=== PATIENT | male | born 1945 | race Caucasian/White ===

== ENCOUNTER 2020-09-20 09:40 | Inpatient (IN) | payer MEDICARE, OTHER, SELFPAY ==
[2020-09-20] VITALS (17 sets, daily range): BP systolic 132–176; BP diastolic 48–84; PULSE 52–87; RESP 16–32; TEMP 36.4–37.1; O2SAT 76–93; BMI 25.8; BMI 33.0; BMI 23.9
--- NOTE | 2020-09-20 09:50 | PC.NURSE ---
PATIENT SENT TO ER PER QUENTIN PACK APRN FOR FURTHER EVALUATION. REPORT GIVEN TO Raheem LITTLEJOHN RN
--- NOTE | 2020-09-20 10:14 | XR_ITS ---
PROCEDURE: XR CHEST PORTABLE CLINICAL HISTORY: soa hypoxia COMPARISON: No exams were available for comparison FINDINGS: The cardiomediastinal silhouette and pulmonary vascularity are within normal limits. Patchy density is present in both lower lobes consistent bilateral lower lobe pneumonia. There is underlying COPD. There is some irregular increased density in the left suprahilar region which could be due to overlapping vessels. Follow-up suggested. No acute bony abnormalities. IMPRESSION: Bilateral lower lobe pneumonia Dictated by: Shahram Aguilar MD 09/20/2020 10:41 Shahram Aguilar MD in [place] 09/20/2020 10:41
[2020-09-20 10:39] LABS: Chloride 102 mmol/L (98-107); Sodium 140 mmol/L (136-145)
[2020-09-20 10:40] LABS: Potassium 3.1 mmoL/L (3.5-5.1)
[2020-09-20 10:42] LABS: Blood Urea Nitrogen 29 mg/dl (9-20); Creatinine Clearance Estimated 72 mL/min (50-200); Estimated Glomerular Filt Rate 82 ml/min (>60); GFR (African American) 100 ML/MIN (>60)
[2020-09-20 10:43] LABS: Alanine Aminotransferase 46 U/L (12-78); Anion Gap 14.1 mEq/L (5-15); Aspartate Amino Transferase 67 U/L (17-59); Bilirubin,Direct 0.3 mg/dl (0.0-0.4); Bilirubin,Indirect 0.8 mg/dL (0.0-0.9); Bilirubin,Total 1.1 mg/dl (0.2-1.3); Bilirubin,Unconjugated 0.8 mg/dL (0.0-1.1); Calcium 9.3 mg/dl (8.4-10.2); Carbon Dioxide 27 mmol/L (22.0-30.0); Glucose 209 mg/dl (74-100)
[2020-09-20 10:44] LABS: Alkaline Phosphatase 147 U/L (38-126); Total Protein,Serum 7.8 g/dl (6.3-8.2)
--- NOTE | 2020-09-20 10:48 | HMH.EDGENADL ---
ED Disposition Clinical Impression: Pneumonia due to COVID-19 virus Disposition: Admitted As Inpatient Condition on Discharge: Good - Critical Care Critical Care Time: No Attestation: On 09/20/20, the high probability of a clinically significant, sudden or life threatening deterioration of the following system(s) required my full and direct attention, intervention and personal management. The time I documented below is in addition to time spent performing reported procedures but includes the following listed in this critical care notation. Medical Decision Making - Medical Records Medical records reviewed: Yes: I reviewed the patient's medical records. - Jacob Inquiry Pt receiving controlled substance: No Vital Signs: 09/20/20 09:40 09/20/20 09:42 09/20/20 10:14 Temperature 98.7 F Temperature Source Oral Pulse Rate Pulse Rate [Left Brachial] 87 Respiratory Rate 32 H Blood Pressure Blood Pressure [Left Arm] 132/48 L Blood Pressure Mean [Left Arm] 76 Blood Pressure Source Blood Pressure Source [Left Arm] Automatic Cuff Blood Pressure Position Blood Pressure Position [Left Arm] Sitting 02 Sat by Pulse Oximetry 78 L 85 L Oxygen Delivery Method Room Air Nasal Cannula Oxygen Flow Rate (LPM) 2.5 6 09/20/20 10:25 09/20/20 11:14 09/20/20 12:46 Temperature 98.2 F 97.6 F Temperature Source Oral Oral Pulse Rate Pulse Rate [Left Brachial] 72 69 52 L Respiratory Rate 21 22 30 H Blood Pressure Blood Pressure [Left Arm] 135/84 175/80 H Blood Pressure Mean [Left Arm] 101 111 Blood Pressure Source Blood Pressure Source [Left Arm] Automatic Cuff Automatic Cuff Blood Pressure Position Blood Pressure Position [Left Arm] Sitting 02 Sat by Pulse Oximetry 76 L 89 L 88 L Oxygen Delivery Method Room Air Nasal Cannula Oxygen Flow Rate (LPM) 5 09/20/20 12:50 09/20/20 13:01 09/20/20 13:11 Temperature 98.0 F Temperature Source Pulse Rate 70 Pulse Rate [Left Brachial] 78 77 Respiratory Rate 18 20 20 Blood Pressure 156/83 H Blood Pressure [Left Arm] 176/72 H 156/83 H Blood Pressure Mean [Left Arm] 106 107 Blood Pressure Source Automatic Cuff Blood Pressure Source [Left Arm] Automatic Cuff Automatic Cuff Blood Pressure Position Sitting Blood Pressure Position [Left Arm] Sitting Sitting 02 Sat by Pulse Oximetry 88 L 87 L Oxygen Delivery Method Nasal Cannula Nasal Cannula Nasal Cannula Oxygen Flow Rate (LPM) 5 5 5 - Lab Data Lab Results 09/20/20 09:50: Chlamy pneumoniae PCR Not detected, Adenovirus (PCR) Not detected, B. pertussis DNA (PCR) Not detected, Coronavirus OC43 (PCR) Not detected, Coronavirus HKU1 (PCR) Not detected, Coronavirus 229E (PCR) Not detected, SARS-CoV-2 (PCR) Detected A, Coronavirus NL63 (PCR) Not detected, Human Metapneumovir PCR Not detected, Influenza A (H1) PCR Not detected, Influ A (H1N1/) PCR Not detected, Influenza A (H3) PCR Not detected, Influenza Type A (PCR) Not detected, Influenza Type B (PCR) Not detected, M. pneumoniae (PCR) Not detected, Parainfluenza 1 (PCR) Not detected, Parainfluenza 2 (PCR) Not detected, Parainfluenza 3 (PCR) Not detected, Parainfluenza 4 (PCR) Not detected, RSV (PCR) Not detected, Entero/Rhino (PCR) Not detected 09/20/20 10:15: WBC 7.9, RBC 5.36, Hgb 16.4, Hct 47.8, MCV 89.2, MCH 30.6, MCHC 34.3, RDW 13.3, Plt Count 235, MPV 7.9, Neut % (Auto) 86.6 H, Lymph % (Auto) 7.5 L, [place] % (Auto) 5.5, Eos % (Auto) 0.1, Baso % (Auto) 0.3, Neut # (Auto) 6.8, Lymph # (Auto) 0.6 L, [place] # (Auto) 0.4, Eos # (Auto) 0.0, Baso # (Auto) 0.0, Total Counted 100, Neutrophils % (Manual) 80 H, Lymphocytes % (Manual) 9 L, Monocytes % (Manual) 11 H, Platelet Estimate Normal, RBC Morphology Normal 09/20/20 10:15: Sodium 140, Potassium 3.1 L, Chloride 102, Carbon Dioxide 27, Anion Gap 14.1, BUN 29 H, Creatinine 0.90, Estimated Creat Clear 72, Estimated GFR 82, Est GFR ( Amer) 100, Glucose 209 H, Calcium 9.3, Troponin I 0.01
[2020-09-20 10:52] LABS: NT Pro Brain Natriuretic Pep. 465 pg/mL (0-450)
--- NOTE | 2020-09-20 10:53 | ECG_ITS ---
APPROVED REPORT Exam: Resting ECG HR:70 bpm ECG Measurements Heart Rate 70 AXES OR 154 P 82 QRSd 92 QRS 92 QT 418 T 35 QTc 451 Conclusion Normal sinus rhythm Rightward axis Junctional ST depression, probably normal Borderline ECG Electronically signed by : Yovani Isbell, 09/20/2020 19:08:30
[2020-09-20 10:57] LABS: Adenovirus,PCR Not Detected (NotDetected); Bordetella Pertussis Not Detected (NotDetected); Chlamydophila Pneumoniae, PCR Not Detected (NotDetected); Coronavirus 229E Not Detected (NotDetected); Coronavirus NL63 Not Detected (NotDetected); Coronavirus OC43 Not Detected (NotDetected); Coronovirus HKU1,PCR Not Detected (NotDetected); Human Metapneumovirus Not Detected (NotDetected); Influenza A, PCR Not Detected (NotDetected); Influenza AH1, 2009 Not Detected (NotDetected); Influenza AH1, PCR Not Detected (NotDetected); Influenza AH3,PCR Not Detected (NotDetected); Influenza B, PCR Not Detected (NotDetected); Mycoplasma Pneumoniae, PCR Not Detected (NotDetected); Parainfluenza 1, PCR Not Detected (NotDetected); Parainfluenza 2, PCR Not Detected (NotDetected); Parainfluenza 3, PCR Not Detected (NotDetected); Parainfluenza 4, PCR Not Detected (NotDetected); Respiratory Syncytial Virus Not Detected (NotDetected); Rhinovirus/Enterovirus Not Detected (NotDetected)
[2020-09-20 10:57] LABS: Basophils % 0.3 % (0.1-2.0); Eosinophils % 0.1 % (0.1-12.0); Hematocrit 47.8 % (42.0-52.0); Hemoglobin 16.4 g/dL (14.1-18.0); Lymphocytes # 0.6 K/mm3 (0.7-4.5); Lymphocytes % 7.5 % (10-50); Mean Corpuscular HGB Conc 34.3 g/dL (31.8-35.4); Mean Corpuscular Hemoglobin 30.6 pg (27.0-31.2); Mean Corpuscular Volume 89.2 fl (80-94); Mean Platelet Volume 7.9 fl (7.4-10.4); Monocytes # 0.4 K/mm3 (0.1-1.0); Monocytes % 5.5 % (1.7-9.3); Neutrophils # 6.8 K/mm3 (1.8-7.8); Neutrophils % 86.6 % (37.0-80.0); Platelet Count 235 K/mm3 (142-424); Red Blood Count 5.36 M/mm3 (4.60-6.20); Red Cell Distribution Width 13.3 % (11.5-17.5); Troponin I 0.01 ng/ml (0.00-0.034); White Blood Count 7.9 K/mm3 (4.8-10.8)
[2020-09-20 10:59] LABS: MANUAL DIFFERENTIAL MANUAL DIFFERENTIAL (MANUAL DIFF)
[2020-09-20 11:10] LABS: Coronavirus 19 IgG Antibody Positive (Negative); Coronavirus 19 IgM Antibody Positive (Negative)
[2020-09-20 11:35] LABS: Lymphocytes % 9 % (10-50); Monocytes % 11 % (2-9); Neutrophils % 80 % (42-76); Total Cells Counted 100
[2020-09-20 11:36] LABS: Platelet Estimate Normal; RBC Morphology Normal
--- NOTE | 2020-09-20 11:55 | PC.NURSE ---
speaking with Dr. Hein
--- NOTE | 2020-09-20 11:56 | PC.NURSE ---
Notified care management of COVID admission
[2020-09-20 12:27] LABS: Coronavirus 19, PCR Detected (NotDetected)
--- NOTE | 2020-09-20 14:34 | HMH.HP ---
*Admission Date: 09/20/20 <Ann Sullivan - 09/20/20 15:37> *Chief complaint: Shortness of breath <Ann Sullivan - 09/20/20 15:37> *History of present illness: - Mr. Gillette is a 74-year-old male patient with a history of hyperlipidemia, hypertension, and hypothyroidism who presented to [facility] emergency room with progressive shortness of breath and cough. He states he has been sick for about 6 or 7 days and thought he could manage to get well on his own. It started after playing golf with his friends who are now all sick with Covid. There are about 10 of them that have fallen ill. He has been more short of breath the last 2 to 3 days. His O2 sats did decrease and he felt so badly his son insisted that he come to the emergency room. He denies chest pain. He states he also developed a diarrhea about 2 to 3 days ago and has not been able to eat or drink. He denies nausea and vomiting and abdominal pain but states he has just no appetite. He reports generalized fatigue. He was initially seen in the [facility] and was found to have O2 sats in the 70s. He appears cyanotic. Thus he was transferred to the ER where he was evaluated. Work-up in the emergency room revealed normal white blood cell count at 7900. Blood chemistries showed a low potassium at 3.1. BUN was a little elevated at 29 with a creatinine of 0.9. GFR is 82. Liver function studies showed an elevated AST at 67 and alkaline phosphatase of 147. BNP was 465. Covid PCR was detected with a positive IgG and positive IgM.. Chest x-ray revealed bilateral lower lobe pneumonia. O2 sats did improve to 88 with oxygen. At time of this exam patient states he feels 100% better. His O2 sats still are in the high 80s and oxygen has been increased to 6 L/min. He has not received a DuoNeb treatment as yet. To note patient has never been hospitalized. He has been very active and and is followed by his PCP for his high blood pressure and Hyperlipidemia. <Ann Sullivan - 09/20/20 15:37> [facility] History Medical History: Reports:: Hyperlipidemia, Hypertension Denies:: Chronic Obstructive Pulmonary Disease (COPD), Depression, Diabetes Mellitus Type 2 <Ann Sullivan - 09/20/20 15:37> *Have you ever received a pneumonia vaccine?: No <[facility] 09/20/20 15:10> *Have you received a flu vaccine this season?: No <LaurieAnn - 09/20/20 15:10> Other Surgeries: Yes: No Previous Surgery <SullivanAnn - 09/20/20 15:37> - *Social History Alcohol Intake: never <SullivanAnn 09/20/20 15:10> *Occupational Status:: other [facility] 09/20/20 15:10> *Travel in the last 8 weeks: None <SullivanAnn - 09/20/20 15:10> Family Hx:: Coronary Artery Disease, no Diabetes <SullivanAnn - 09/20/20 15:37> Review of Systems - Constitutional Reports fever(s), Reports lack of energy <SullivanAnn - 09/20/20 15:37> - Eyes Denies change in vision <Sullivan,[facility] 09/20/20 15:37> - ENT Reports nasal congestion, Reports post nasal drip, Denies ear pain, Denies sore throat <[facility] 09/20/20 15:37> - *Cardiovascular Reports shortness of breath, Denies chest pain, Denies irregular heart rhythm, Denies leg swelling <[facility] 09/20/20 15:37> - *Respiratory Reports cough, Reports shortness of breath, Denies excessive phlegm production, Denies coughing up blood <Sullivan,[facility] 09/20/20 15:37> - *Gastrointestinal Reports loose stools, Reports nausea, Denies abdominal pain, Denies constipation, Denies heartburn, Denies heartburn, Denies vomiting <Sullivan,Ann - 09/20/20 15:37> - *Genitourinary Denies difficulty urinating <Sullivan,[facility] 09/20/20 15:37> - *Musculoskeletal Reports other (Usually no problem but is weak now) <Sullivan,[facility] 09/20/20 15:37> - *Neurologic Denies seizure-like activity, Denies dizziness, Denies headache(s) <[facility] 09/20/20 15:37> Meds Home Medications Medication Instructions Recorded Confirmed Typ
--- NOTE | 2020-09-20 16:56 | PC.NURSE ---
1518 - Notified MD of decreased O2 sat 87-88% after duoneb treatment and use of IS. Pt denies SOA and states that he feels fine. Orders for pt to be placed on vapotherm starting @ 30L FIO2 and to titrate to maintain O2 sat > 90%. PLAYBACK OPERATOR notified of this. 153 - Pt on vapotherm per Bennie ArndtRT. Settings of 25 L @ 100% d/t pt stating he was not able to tolerate the flow of the 30 L. Pt SPO2 90%. Cont pulse ox is in place for monitoring. Pt is currently sitting up in bed eating dinner, sat will occasional to 89% but will almost instantly increase back to 90%. Pt tolerating vapotherm well. Lungs diminished throughout all air mendoza. Education on IS has been given by this nurse. Pt demonstrated use appropriately by may still need encouragement and reminding to use while awake. Is @ best 1000 cc. Pt has a non-productive cough. Speci cup is at bedside and pt is aware of need for sputum sample. Resp rate has been 22-30/min. NSR on tely, occasionally will go in and out of bigeminy. SBP has been elevated, MD made aware of this. Abdomen soft, non-tender w/ active BS. Pt has had diarrhea for the past couple of days, but has had no BM since arriving to hospital. Voiding clear drk yellow urine w/o difficulty. Skin is intact. No edema noted. Lovenox has been started for VTE prophylaxis. Pt has been in contact w/ his family to update them throughout shift. Pt educated on hospital policies, call hernandez is w/in reach. No needs voiced @ this time.
--- NOTE | 2020-09-20 21:40 | PC.NURSE ---
Pt O2 started to desat between 86-89%. RT notified. Vapotherm settings changed from 25 L 100% to 30L 100%.
[2020-09-21] VITALS (14 sets, daily range): BP systolic 133–156; BP diastolic 65–72; PULSE 60–80; RESP 17–22; TEMP 36.2–36.7; O2SAT 89–94; BMI 23.7
--- NOTE | 2020-09-21 03:36 | PC.NURSE ---
Pt A&O x4. Is currently on Vapotherm 30L @ 100%. O2 sat is currently 91%. Lungs are diminished t/o. Has non productive cough. Pt becomes soa and fatigued with activity. O2 desats in upper 80s. Recovery period is around 5 to 10 minutes at times. Pt has remained afebrile. BP is stable. Pt has been sinus, sinus arrhythmia and bigeminy on telemetry. Pt uses urinal. Total urine output this shift is 600 ml thus far. Medications administered per dec. Call light within reach. Will continue to monitor.
[2020-09-21 05:46] LABS: Basophils % 0.4 % (0.1-2.0); Hematocrit 38.7 % (42.0-52.0); Lymphocytes # 0.9 K/mm3 (0.7-4.5); Lymphocytes % 12.8 % (10-50); Mean Corpuscular HGB Conc 36.2 g/dL (31.8-35.4); Mean Corpuscular Hemoglobin 31.1 pg (27.0-31.2); Mean Corpuscular Volume 85.9 fl (80-94); Mean Platelet Volume 8.6 fl (7.4-10.4); Monocytes # 0.6 K/mm3 (0.1-1.0); Monocytes % 8.6 % (1.7-9.3); Neutrophils # 5.2 K/mm3 (1.8-7.8); Neutrophils % 78.1 % (37.0-80.0); Platelet Count 256 K/mm3 (142-424); Red Cell Distribution Width 13.6 % (11.5-17.5); White Blood Count 6.6 K/mm3 (4.8-10.8)
[2020-09-21 05:50] LABS: Chloride 107 mmol/L (98-107); Sodium 139 mmol/L (136-145)
[2020-09-21 05:51] LABS: Potassium 3.5 mmoL/L (3.5-5.1)
[2020-09-21 05:53] LABS: Alanine Aminotransferase 41 U/L (12-78); Albumin Level 3.2 g/dl (3.5-5.0); Alkaline Phosphatase 117 U/L (38-126); Anion Gap 11.5 mEq/L (5-15); Aspartate Amino Transferase 48 U/L (17-59); Bilirubin,Total 0.5 mg/dl (0.2-1.3); Blood Urea Nitrogen 20 mg/dl (9-20); Carbon Dioxide 24 mmol/L (22.0-30.0); Creatinine Clearance Estimated 66 mL/min (50-200); Estimated Glomerular Filt Rate 110 ml/min (>60); GFR (African American) 133 ML/MIN (>60); Globulin 3.2 g/dL (1.3-3.2); Total Protein,Serum 6.4 g/dl (6.3-8.2)
[2020-09-21 05:54] LABS: Calcium 8.5 mg/dl (8.4-10.2); Glucose 161 mg/dl (74-100)
[2020-09-21 06:04] LABS: Hemoglobin 14.1 g/dL (14.1-18.0)
--- NOTE | 2020-09-21 07:57 | P.CONPHA_ITS ---
[facility] Pharmacy VTE Monitoring - Patient Demographics Admission date: 09/20/20 Report Date: 09/21/20 Time: 07:57 Allergies/Adverse Reactions: Patient Allergies No Known Allergies Allergy (Verified 09/20/20 10:35) Height: 1.75 m Weight: 72.575 kg Patient Problems: Current Active Problems Pneumonia due to COVID-19 virus (Acute) Acute hypoxemic respiratory failure due to COVID-19 (Acute) Hypertension (Chronic) Elevated liver function tests (Acute) Hypokalemia (Acute) - VTE Risk Labs: VTE Related Lab Results Hgb 14.1 g/dL (14.1-18.0) D 09/21/20 05:15 Hct 38.7 % (42.0-52.0) L 09/21/20 05:15 Plt Count 256 K/mm3 (142-424) 09/21/20 05:15 BUN 20 mg/dl (9-20) D 09/21/20 05:15 Creatinine 0.70 mg/dl (0.66-1.25) D 09/21/20 05:15 Estimated Creat Clear 66 mL/min (50-200) 09/21/20 05:15 Was VTE Risk Assessment Performed: Yes VTE Score: 2 VTE Risk Level: Very Low Risk Clinical Trial Participant: No - Prophylaxis VTE Prophylaxis Ordered?: Yes Types of VTE Prophylaxis: TEDS Knee High Location of Applied Device: Bilateral Lower Extremeties Pharmacologic Type: Enoxaparin
--- NOTE | 2020-09-21 08:00 | HMH.PHAINT ---
Medication reconciliation completed using pharmacy claims data.
--- NOTE | 2020-09-21 08:45 | HMH.ACPN2 ---
Internal Medicine - PN: Subj *Date: 09/21/20 *Time: 08:45 Interval history: Patient states he slept well last night. Denies respiratory distress. He continues with cough that is occasionally productive. Denies chest pain. Appetite is good. He is currently on Vapotherm at 40 L Exam Vital signs and Labs for Last 24 Hours: Temp Pulse Resp BP Pulse Ox 98.1 F 69 18 139/72 89 L 09/21/20 16:00 09/21/20 16:00 09/21/20 16:00 09/21/20 16:00 09/21/20 16:00 Laboratory Results - last 24 hr 09/21/20 05:15: WBC 6.6, RBC 4.50 L, Hgb 14.1 D, Hct 38.7 L, MCV 85.9, MCH 31.1, MCHC 36.2 H, RDW 13.6, Plt Count 256, MPV 8.6, Neut % (Auto) 78.1, Lymph % (Auto) 12.8, [place] % (Auto) 8.6, Eos % (Auto) 0.0 L, Baso % (Auto) 0.4, Neut # (Auto) 5.2, Lymph # (Auto) 0.9, [place] # (Auto) 0.6, Eos # (Auto) 0.0, Baso # (Auto) 0.0 09/21/20 05:15: Sodium 139, Potassium 3.5, Chloride 107, Carbon Dioxide 24, Anion Gap 11.5, BUN 20 D, Creatinine 0.70 D, Estimated Creat Clear 66, Estimated GFR 110, Est GFR ( Amer) 133 D, Glucose 161 H D, Calcium 8.5, Total Bilirubin 0.5, AST 48 D, ALT 41, Alkaline Phosphatase 117, Total Protein 6.4, Albumin 3.2 L D, Globulin 3.2, Albumin/Globulin Ratio 1.0 L I & O for Last 24 hours: Intake & Output 09/19/20 09/20/20 09/21/20 09/22/20 11:59 11:59 11:59 11:59 Intake Total 1150 / 1150 960 / 960 Output Total 650 / 650 400 / 400 Balance 500 / 500 560 / 560 Weight 175 lb 160 lb Narrative: He is resting comfortably in bed and is and is tolerating his high flow oxygen. Color is good. No respiratory distress. Chest with bibasilar coarse rales. No wheezes. Heart is regular. Abdomen is soft and nondistended with no tenderness. Assessment and Plan (1) Pneumonia due to COVID-19 virus Status: Acute Category: Medical Code(s): U07.1 - COVID-19; J12.89 - Other viral pneumonia (2) Acute hypoxemic respiratory failure due to COVID-19 Status: Acute Category: Medical Code(s): U07.1 - COVID-19; J96.01 - Acute respiratory failure with hypoxia (3) Hypertension Status: Chronic Category: Medical Code(s): I10 - Essential (primary) hypertension (4) Elevated liver function tests Status: Acute Category: Medical Code(s): R79.89 - Other specified abnormal findings of blood chemistry (5) Hypokalemia Status: Acute Category: Medical Code(s): E87.6 - Hypokalemia - Assessment and plan all Dx Assessment and Plan for all problems:: Continue per Covid protocol. Pulmonology consult today.
--- NOTE | 2020-09-21 11:03 | HMH.PULMCON ---
*Admission Date: 09/20/20 *Reason for consult:: Acute hypoxic respiratory failure, COVID-19 pneumonia *History of present illness: Mr. Gillette is a 74-year-old male previous smoker, last smoked 50 years ago, no prior respiratory problems, history of hypertension, dyslipidemia, hypothyroidism presented to the hospital with worsening shortness of breath for the last week and was found to be COVID-19 positive patient stated that all his friends that play golf together also tested positive for COVID-19 pneumonia. Patient also complains of abdominal symptoms. On presentation ED patient was found to hypoxic and initiated on high flow nasal cannula with which his oxygen requirements improved. Patient currently denies any productive cough. States that his breathing significantly improved since admission. [facility] History Medical History: Reports:: Hyperlipidemia, Hypertension Denies:: Chronic Obstructive Pulmonary Disease (COPD), Depression, Diabetes Mellitus Type 2 *Have you ever received a pneumonia vaccine?: Yes *Have you received a flu vaccine this season?: Yes Other Medical History: Reports: Hypothyroidism Other Surgeries: Yes: No Previous Surgery - *Social History Last grade of school completed: High school graduate Alcohol Intake: never *Occupational Status:: retired *Travel in the last 8 weeks: None - Psychiatric History Pschychiatric History:: Denies:: Depression Family Hx:: Coronary Artery Disease, no Diabetes ROS - Cons Reports anorexia, Reports body ache(s), Reports chills - Card Denies chest pain, Denies chest pain at rest, Denies chest pain with activity, Denies leg swelling - Resp Respiratory: Yes chest congestion, Yes cough, Yes non-productive cough, Yes dyspnea, Yes dyspnea on exertion, No excessive phlegm production, No coughing up blood - GI Gastrointestingal: Reports: bloating, change in bowel habits Meds Home Medications Medication Instructions Recorded Confirmed Type Simvastatin 40 mg PO HS 09/20/20 09/21/20 History hydroCHLOROthiazide 12.5 mg PO DAILY 09/20/20 09/20/20 History [Hydrochlorothiazide 12.5mg Tab] Levothyroxine Sodium 88 mcg PO DAILY 09/21/20 09/21/20 History [Levothyroxine 88mcg (0.088mg) Tab] Allergies Allergy/AdvReac Type Severity Reaction Status Date / Time No Known Allergies Allergy Verified 09/20/20 10:35 Exam Radiology reports for Last 24 Hours: Chest x-ray on admission reviewed, showed bilateral groundglass opacities predominantly in the right lower lobe and left lower lobes - Constitutional Constitutional:: comfortable - HENMT Exam HENMT: normocephalic, atraumatic - Eye Exam Eyes:: normal appearance both eyes and related structures - Neck Exam Neck:: thyroid normal, no lymphadenopathy - Respiratory Exam Respiratory:: able to speak in complete sentences Comments: Patient in mild respiratory distress bilateral coarse breath sounds noted prominently in the lower lung mendoza - Cardiovascular Exam Cardiac:: regular rhythm, S1, S2 - GI Exam GI:: soft, no hepatosplenomegaly - Skin Exam Skin: no rash, rash - Neurological Exam Neurological: alert, awake, normal cognition - Extremities Exam Extremities: no cyanosis, no clubbing, no edema - Psychiatric Exam Psychiatric: normal affect Internal Medicine - CN: Reslt - Labs CBC & Chem 7: 09/21/20 05:15 09/21/20 05:15 Labs: Short CBC 09/21/20 Range/Units 05:15 WBC 6.6 (4.8-10.8) K/mm3 Hgb 14.1 D (14.1-18.0) g/dL Hct 38.7 L (42.0-52.0) % Plt Count 256 (142-424) K/mm3 BMP 09/21/20 05:15 Sodium 139 Potassium 3.5 Chloride 107 Carbon Dioxide 24 BUN 20 D Creatinine 0.70 D Glucose 161 H D Calcium 8.5 Liver Function 09/21/20 Range/Units 05:15 Total Bilirubin 0.5 (0.2-1.3) mg/dl AST 48 D (17-59) U/L ALT 41 (12-78) U/L Alkaline Phosphatase 117 (38-126) U/L Albumin 3.2 L D (3.5-5.0) g/dl Assessment and Plan (1
--- NOTE | 2020-09-21 11:18 | CT_ITS ---
PROCEDURE: CT ANGIO CHEST CLINCIAL INDICATION: Pulmonary Embolism eveluiton Positive Covid19 COMPARISON: CR XR CHEST PORTABLE from 09/20/2020 TECHNIQUE: IV Contrast: 70ML Isovue 370 Axial images obtained with sagittal and coronal reformats. All CT scans at the facility use one or more dose reduction, viz: automated exposure control, ma/kV adjustment per patient size (including targeted exams where dose is matched to indication, i.e. head), or iterative reconstruction technique. FINDINGS: Motion artifact obscures fine detail. There is no evidence of central pulmonary embolus. The peripheral pulmonary arteries in the lower lobes are not well delineated secondary to motion and secondary to lung collapse and consolidation. Cannot exclude the possibility of small subsegmental pulmonary emboli. No evidence of aortic aneurysm or dissection. 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 There is consolidation of both lower lobes with diffuse ground-glass attenuation consistent with bilateral pneumonia. Ground-glass attenuation noted suggesting Covid19 pneumonia. No effusions. No cavitation. There is some sclerosis of the superior segment of the body of the sternum. This is nonspecific. Upper abdominal images are unremarkable. IMPRESSION: 1. No evidence of central pulmonary embolus. 2. Motion artifact, lung collapse, and lung consolidation in the lower lobes makes it difficult to evaluate the subsegmental pulmonary arteries. Cannot exclude emboli in the subsegmental arteries.. 3. Bilateral lower lobe pneumonia with volume loss with superimposed COPD/centrilobular emphysema and ground-glass attenuation in the lower lobes consistent with Covid19 pneumonia. Dictated by: Shahram Aguilar MD 09/21/2020 14:27 Shahram Aguilar MD in [place] 09/21/2020 14:27
--- NOTE | 2020-09-21 13:50 | PC.NURSE ---
Pt went down for ct and is back at this time.
--- NOTE | 2020-09-21 19:40 | PC.NURSE ---
Pt alert and oriented and able to make needs known. States he is feeling better than prior. CB in use. Pt's lung sounds are diminished. BS x 4. Voids per urinal. Has been nsr/sinus arrhythmia with pvc's on tele. No c/o at this time. Continues on vapotherm 40 L/100%. VSS.
[2020-09-22] VITALS (37 sets, daily range): BP systolic 106–168; BP diastolic 66–90; PULSE 55–155; RESP 20–41; TEMP 36–36.6; O2SAT 80–98; BMI 23.7
--- NOTE | 2020-09-22 03:54 | XR_ITS ---
PROCEDURE: XR CHEST PORTABLE CLINICAL HISTORY: SOB, desaturation COMPARISON: CR XR CHEST PORTABLE from 09/20/[address] ANGIO CHEST from 09/21/2020 FINDINGS: The cardiomediastinal silhouette and pulmonary vascularity are within normal limits. There remains bilateral lower lobe consolidation which may be slightly worse. COPD noted. No acute bony abnormalities. IMPRESSION: Slightly worsening bilateral lower lobe pneumonia Dictated by: Shahram Aguilar MD 09/22/2020 06:09 Shahram Aguilar MD in [place] 09/22/2020 06:09
[2020-09-22 04:03] LABS: ABG Base Excess -5.6 mmol/L (-2.4-2.3); ABG HCO3 17.7 mmhg (22.0-26.0); ABG Oxygen Saturation 73 % (90-100); ABG PCO2 23.5 mmhg (35.0-45.0); ABG TCO2 18.4 mmhg (23-27)
[2020-09-22 04:04] LABS: ABG PO2 33.9 mmhg (80-100); Allen's Test Y; Oxygen 100 %; Source R/R
--- NOTE | 2020-09-22 04:18 | PC.NURSE ---
Nurse is aware of patients RESP. Michela
--- NOTE | 2020-09-22 05:29 | PC.NURSE ---
Pt is A&Ox4. At the beginning of this shift, pt was tolerating vapotherm @ 40L and 100%fio2 appropriately. AT approximately 0245, this pt began desatting after using the urinal. Pt o2 sat was maintaining between 80-84% and would go back up to 91% for about a minute and a half before another desaturation episode occured. During this time pt's RR was between 30-36/breath per min. 80-84% lasted approx an hour and then despite alternative interventions such as PRN duonebs, repositioning, and relaxation techniques-pt began to desat between 74-78%. At this time MD Hein was notified with RT on standby. Pt remained cognizant the entire time and kept telling staff I feel fine, I feel better-it must be the machines telling you all the wrong thing ordered a stat ABG and CXR. At this time Cutting Machine Tender Decorative was notified for an update on pt's condition. MD Hein notified of ABG results and ordered to put pt on bipap. Pt fitted and placed on bipap, o2 sats returned to 99% after placement. Pt did become tachy after bipap, with a HR maintaining between 127-132 bpm. MD Hein notified again and PRN Morphine was ordered for anxiety q2h. Pt is currently resting in bed and VSS @ this time. Pt has been in sinus arrhythmia with frequent PVC's and occasional PAC's this shift. Pt is urinating clear, dark yellow urine per urinal. No edema noted. No BM this shift. No other acute changes or complaints at this time. Will continue to monitor.
--- NOTE | 2020-09-22 06:25 | PC.NURSE ---
BIPAP High Rate alarm: 45 BIPAP Low Rate alarm: 6
--- NOTE | 2020-09-22 08:00 | HMH.ACPN2 ---
Internal Medicine - PN: Subj *Date: 09/22/20 *Time: 08:00 Interval history: O2 sats dropped to 70s during the night on high flow O2 at 40L. ABG showed hypoxemia with low pCO2. Switched to BiPAP and sats have been mid to [id number]. He has no new complaints except he is hungry. Tolerating BiPAP well. Exam Vital signs and Labs for Last 24 Hours: Temp Pulse Resp BP Pulse Ox 97.8 F 84 36 H 144/68 H 83 L 09/22/20 07:34 09/22/20 09:30 09/22/20 07:34 09/22/20 07:34 09/22/20 09:45 Laboratory Results - last 24 hr 09/22/20 04:02: Specimen Source R/r, O2 % 100, ABG pH 7.50 H, ABG pCO2 23.5 L, ABG pO2 33.9 L, ABG HCO3 17.7 L, ABG Total CO2 18.4 L, ABG O2 Saturation 73 L*, ABG Base Excess -5.6 L, Shahram Test Y I & O for Last 24 hours: Intake & Output 09/19/20 09/20/20 09/21/20 09/22/20 11:59 11:59 11:59 11:59 Intake Total 1150 / 1150 960 / 960 Output Total 650 / 650 1800 / 1800 Balance 500 / 500 -840 / -840 Weight 175 lb 160 lb 160 lb Narrative: Alert, comfortable. NAD. Chest with coarse rales in both bases. Heart regular. Abdomen soft, NT. Ext no edema Assessment and Plan (1) Pneumonia due to COVID-19 virus Status: Acute Category: Medical Code(s): U07.1 - COVID-19; J12.89 - Other viral pneumonia (2) Acute hypoxemic respiratory failure due to COVID-19 Status: Acute Category: Medical Code(s): U07.1 - COVID-19; J96.01 - Acute respiratory failure with hypoxia (3) Hypertension Status: Chronic Category: Medical Code(s): I10 - Essential (primary) hypertension (4) Elevated liver function tests Status: Acute Category: Medical Code(s): R79.89 - Other specified abnormal findings of blood chemistry (5) Hypokalemia Status: Acute Category: Medical Code(s): E87.6 - Hypokalemia - Assessment and plan all Dx Assessment and Plan for all problems:: Worsening respiratory status. Stable now on BiPAP. Further recommendations per Dr. Chacon.
--- NOTE | 2020-09-22 09:01 | P.PN_ITS ---
Internal Medicine - PN: Subj *Date: 09/22/20 *Time: 10:23 Interval history: Patient respiratory status worsened overnight needing BiPAP to maintain oxygen saturations above 92%. Exam Radiology reports for Last 24 Hours: CTA from yesterday did not show any evidence of pulmonary embolism but showed diffuse bilateral airspace disease. - Constitutional Constitutional:: no acute distress, comfortable - HENMT Exam HENMT: normocephalic, atraumatic - Neck Exam Neck:: normal visual inspection, thyroid normal, no lymphadenopathy - Respiratory Exam Comments: Patient appeared in respiratory distress, wearing BiPAP with saturations at 96%. No use of accessory muscles. BiLateral coarse breath sounds - Cardiovascular Exam Cardiac:: regular rhythm, S1, S2 - GI Exam GI:: soft, no hepatosplenomegaly - Skin Exam Skin: warm, no rash, dry - Extremities Exam Extremities: no cyanosis, no clubbing, no edema - Psychiatric Exam Psychiatric: normal affect Assessment and Plan (1) Pneumonia due to COVID-19 virus Status: Acute Category: Medical Code(s): U07.1 - COVID-19; J12.89 - Other viral pneumonia (2) Acute hypoxemic respiratory failure due to COVID-19 Status: Acute Category: Medical Code(s): U07.1 - COVID-19; J96.01 - Acute respiratory failure with hypoxia (3) Hypertension Status: Chronic Category: Medical Code(s): I10 - Essential (primary) hypertension (4) Elevated liver function tests Status: Acute Category: Medical Code(s): R79.89 - Other specified abnormal findings of blood chemistry (5) Hypokalemia Status: Acute Category: Medical Code(s): E87.6 - Hypokalemia - Assessment and plan all Dx Assessment and Plan for all problems:: #Acute hypoxic respiratory failure: #COVID-19 pneumonia: 74-year-old no significant smoking history last month 50 years ago no prior respiratory complaints presented with worsening shortness of breath and found to be positive for COVID-19 pneumonia. CTA did not show any evidence of pulmonary emboli however showed diffuse bilate ral groundglass opacity along with significant emphysematous changes. Patient respiratory status worsened overnight needing BiPAP to maintain oxygen saturations. Patient this morning on BiPAP saturating 95 to 96%. Attempted to wean to high flow nasal cannula resulting from desaturation into the low 80s with tachypnea. Hemodynamically stable with no worsening leukocytosis. Afebrile. Patient respiratory status critical and requires requirements. We will continue to monitor closely Plan: - Lasix 40 mg IV once - Echocardiogram -F/U Sputum cultures -Continue ceftriaxone and azithromycin for possible community-acquired pneumonia ? Continue dexamethasone and remdesivir for COVID-19 pneumonia -Continue oxygen supplementation currently on 30 L 100% high flow saturating 93% -Continue DuoNebs every 6 hours scheduled and start budesonide every 12 scheduled -Alpha-1 antitrypsin level Total critical care time spent on this patient is 35 minutes managing acute hypoxic respiratory failure needing noninvasive positive pressure ventilation. This time spent include reviewing test results including interpreting chest x- rays, labs optimizing the NIPPV settings,formulating plan of care, discussing the plan of care with the team and the nursing staff. #Thank you for involving pulmonary in this patient care. We will continue to follow.
--- NOTE | 2020-09-22 09:47 | PC.NURSE ---
Dr. Chacon @ [facility]. He ordered to switch to Vapotherm 40L/100%. RT (Ирина) @ [facility] and made the switch. HR immediately increased to 140s and sats dropped to low 80s. Pt not tolerating the switch to Vapotherm. Dr. Chacon ordered to switch back to Bipap and give Lasix 40mg IV NOW. Order faxed to pharmacy.
--- NOTE | 2020-09-22 10:27 | CA_ITS ---
APPROVED REPORT EXAM: Comprehensive 2D, Doppler, and color-flow Echocardiogram Senior [employer] Manager: Pattie Waggoner RVT Ht: 5 ft 8 in Wt: 160lbs BSA: 1.86 BP: 175/80 mmHg Indications: SOA,COVID PNEUMONIA,HTN,PT ON BIPAP, TRIED TO SWITCH PT TO VAPOTHERM AND PT BECAME TACHYCARDIC TDS-BEST EXAM POSSIBLE 2D Dimensions LVOT 1.92 cm (M/F) 1.5-2.5 M-Mode Dimensions RVDd 2.33 cm (0.9-2.6) LA Diam 4.46 cm (1.9-4.0) LVDd 4.70 cm (3.5-5.7) Ao Diam 3.30 cm (2.0-3.7) LVDs 3.46 cm (3.5-5.7) IVSd 0.75 cm (0.6-1.1) PWd 0.78 cm (0.6-1.1) EF (Teich) 51.70% FS 26.40% EDV (Teich) 102.40 mL ESV (Teich) 49.50 mL Pulmonary Valve PV Peak Velocity 94.00 (50-150 cm/s) Left Ventricle Technically difficult study because of the patient factors and poor acoustic windows. Left atrium is mildly enlarged, left ventricle is normal size, visually estimated ejection fraction 55% with no regional wall motion abnormality, diastolic parameters are inconclusive. Right Ventricle Right atrium and right ventricle are normal size and contractility. Aortic Valve Aortic valve is thickened and calcified leaflet continue to display good mobility, there is no aortic stenosis or aortic insufficiency. Mitral Valve Mitral valve is grossly normal, there is mild mitral regurgitation. Tricuspid Valve Tricuspid valve grossly normal, there is mild tricuspid regurgitation, tricuspid regurgitation jet velocity is inadequate for calculation of the right ventricular systolic pressure. Pulmonic Valve Pulmonic valve is poorly visualized. Great Vessels Aortic root is normal size. Pericardium No significant pericardial effusion noted. Conclusion 1. Technically difficult study because of the patient factors and poor acoustic windows 2. Normal left ventricular size, visually estimated ejection fraction 55% with no regional wall motion abnormality, diastolic parameters are inconclusive. 3. Mild mitral and tricuspid regurgitation. 4. No significant pericardial effusion noted. Electronically signed by : Ovidio Arias, 09/23/2020 12:50:57
--- NOTE | 2020-09-22 10:30 | PC.NURSE ---
BIPAP High Rate alarm increased to 55 due to Patient having a difficult time recovering from Vapotherm trial.
--- NOTE | 2020-09-22 10:31 | PC.NURSE ---
called Dr. Potts regarding sustained HR 130-150s. Pt continues on Bipap 95%. Dr. Potts to call Dr. Chacon and call me back with new orders.
--- NOTE | 2020-09-22 10:36 | PC.NURSE ---
received call back from Dr. Chacon with new orders: 12 lead EKG and CXR. Orders entered on his behalf.
--- NOTE | 2020-09-22 10:37 | XR_ITS ---
PROCEDURE: XR CHEST PORTABLE CLINICAL HISTORY: covid pna COMPARISON: CR XR CHEST PORTABLE from 09/20/[address] ANGIO CHEST from 09/21/2020 CR XR CHEST PORTABLE from 09/22/2020 FINDINGS: The cardiomediastinal silhouette and pulmonary vascularity are within normal limits. Again noted are patchy ill-defined pneumonic infiltrate in both perihilar regions and lower lobes basically stable and unchanged from the film earlier this day. The upper lung mendoza remain clear. Monitor lines overlying the chest. IMPRESSION: Diffuse bilateral lower lobe ill-defined pneumonic infiltrates, stable and essentially uninvolved upper lung mendoza. Dictated by: Dr. Chris Mcgrath MD 09/22/2020 11:13 Dr. Chris Mcgrath MD in [facility] 09/22/2020 11:13
--- NOTE | 2020-09-22 10:37 | ECG_ITS ---
APPROVED REPORT Exam: Resting ECG HR:135 bpm ECG Measurements Heart Rate 135 AXES QRSd 86 QRS 81 QT 338 T -65 QTc 507 Conclusion Atrial fibrillation with rapid ventricular response ST & T wave abnormality, consider inferior ischemia or digitalis effect Abnormal ECG Electronically signed by : Yovani Isbell, 09/22/2020 11:57:12
--- NOTE | 2020-09-22 10:59 | PC.NURSE ---
EKG read by Dr. Chacon as Afib with RVR. He ordered to give Metoprolol 10mg IV now. He entered order.
--- NOTE | 2020-09-22 12:30 | PC.NURSE ---
asked Dr. Chacon if he wants a cardiology consult. He does NOT want a cardiology consult @ this time.
--- NOTE | 2020-09-22 14:00 | PC.NURSE ---
BIPAP High Respiratory Rate alarm: 45
--- NOTE | 2020-09-22 17:33 | PC.NURSE ---
shift note: Dr. Chacon attempted to switch pt to Vapotherm from Bipap early this AM. Within a couple min, pt's HR was irreg @ 120-160. EKG revealed Afib with RVR. Pt was placed back on Bipap 95%. HR sustained > 130 and Metoprolol 10mg IV was given. Pt's HR then decreased but remained irregular. Tele reveals sinus tammie, NSR, sinus tach, Afib, or Aflutter 3:1. He is also having frequent PVCs. He never became hypotensive today. Dr. Chacon did not wish for a cardiology consult. Pt remains A&O, denies pain, and asks for sips of water frequently. He swallows without difficulty. He desats to the 70s if Bipap is off for more than 1 min. Currently, his sats are 95% and HR 65 NSR. Lung sounds are diminished and hard to hear. He had an echo done today as well. Preliminary results are in the chart. Family have called multiple times today and have been updated.
[2020-09-23] VITALS (17 sets, daily range): BP systolic 121–153; BP diastolic 56–91; PULSE 58–81; RESP 4–29; TEMP 36.4–37; O2SAT 91–95
--- NOTE | 2020-09-23 | ECG_ITS ---
APPROVED REPORT Exam: Resting ECG HR:155 bpm ECG Measurements Heart Rate 155 AXES DE P 212 QRSd 80 QRS 112 QT 298 T 256 QTc 478 Conclusion Atrial flutter with 2:1 AV conduction Left posterior fascicular block Marked ST abnormality, possible inferolateral subendocardial injury Abnormal ECG Electronically signed by : Yovani Isbell, 09/24/2020 07:09:26
--- NOTE | 2020-09-23 05:02 | PC.NURSE ---
UNABLE TO OBTAIN PATIENTS WEIGHT THIS AM DUE TO PATIENT NOT ABLE TO TOLERATE. RN AWARE.
--- NOTE | 2020-09-23 05:07 | PC.NURSE ---
PATIENT'S WEIGHT NOT OBTAIN THIS AM. PATIENT UNABLE TO TOLERATE AT THIS TIME. RN AWARE.
[2020-09-23 05:30] LABS: Chloride 105 mmol/L (98-107); Potassium 3.6 mmoL/L (3.5-5.1); Sodium 136 mmol/L (136-145)
[2020-09-23 05:32] LABS: Alanine Aminotransferase 34 U/L (12-78); Aspartate Amino Transferase 34 U/L (17-59); Blood Urea Nitrogen 19 mg/dl (9-20); Creatinine Clearance Estimated 66 mL/min (50-200); Estimated Glomerular Filt Rate 110 ml/min (>60); GFR (African American) 133 ML/MIN (>60)
[2020-09-23 05:33] LABS: Albumin Level 3.1 g/dl (3.5-5.0); Alkaline Phosphatase 124 U/L (38-126); Anion Gap 10.6 mEq/L (5-15); Bilirubin,Total 0.8 mg/dl (0.2-1.3); Calcium 8.4 mg/dl (8.4-10.2); Carbon Dioxide 24 mmol/L (22.0-30.0); Glucose 110 mg/dl (74-100); Total Protein,Serum 6.1 g/dl (6.3-8.2)
[2020-09-23 05:36] LABS: Basophils % 0.3 % (0.1-2.0); Eosinophils % 0.1 % (0.1-12.0); Hematocrit 39.2 % (42.0-52.0); Hemoglobin 14.1 g/dL (14.1-18.0); Lymphocytes # 0.8 K/mm3 (0.7-4.5); Lymphocytes % 7.1 % (10-50); Mean Corpuscular Volume 88.9 fl (80-94); Mean Platelet Volume 8.1 fl (7.4-10.4); Monocytes # 0.7 K/mm3 (0.1-1.0); Monocytes % 6.1 % (1.7-9.3); Neutrophils # 9.4 K/mm3 (1.8-7.8); Neutrophils % 86.5 % (37.0-80.0); Platelet Count 178 K/mm3 (142-424); Red Blood Count 4.41 M/mm3 (4.60-6.20); White Blood Count 10.8 K/mm3 (4.8-10.8)
[2020-09-23 05:40] LABS: MANUAL DIFFERENTIAL MANUAL DIFFERENTIAL (MANUAL DIFF)
--- NOTE | 2020-09-23 05:57 | PC.NURSE ---
patient appeared uncomfortable and anxious at the beginning of the shift with respiratory rate in the high 30s. 2 mg morphine given ivp. 2 doses given throughout the shift. patient sats remained 90-94% on 95% fio2, respirtory rate low to mid 20s. breath sounds diminished throughout . instructional support specialist has shown sb/sr with multiple pacs and pvcs. voiding clear yellow urine
[2020-09-23 06:25] LABS: Acanthocytes 1+; Lymphocytes % 13 % (10-50); Monocytes % 3 % (2-9); Neutrophils % 84 % (42-76); Ovalocytes 1+; Platelet Estimate Normal; Total Cells Counted 100
--- NOTE | 2020-09-23 08:15 | HMH.ACPN2 ---
Internal Medicine - PN: Subj *Date: 09/23/20 *Time: 08:15 Interval history: He remains very alert. States he slept last night. Continues on BiPAP quickly desaturates when the mask is removed. No complaints of pain. He went into rapid A. fib yesterday but converted with 1 dose of metoprolol Exam Vital signs and Labs for Last 24 Hours: Temp Pulse Resp BP Pulse Ox 97.5 F L 72 24 121/91 H 95 09/23/20 15:38 09/23/20 15:38 09/23/20 15:38 09/23/20 15:38 09/23/20 15:38 Laboratory Results - last 24 hr 09/20/20 10:15: [id number] 272 H 09/23/20 04:50: WBC 10.8 D, RBC 4.41 L, Hgb 14.1, Hct 39.2 L, MCV 88.9, MCH 32.0 H, MCHC 36.0 H, RDW 14.0, Plt Count 178 D, MPV 8.1, Neut % (Auto) 86.5 H, Lymph % (Auto) 7.1 L, [place] % (Auto) 6.1, Eos % (Auto) 0.1, Baso % (Auto) 0.3, Neut # (Auto) 9.4 H, Lymph # (Auto) 0.8, [place] # (Auto) 0.7, Eos # (Auto) 0.0, Baso # (Auto) 0.0, Total Counted 100, Neutrophils % (Manual) 84 H, Lymphocytes % (Manual) 13, Monocytes % (Manual) 3, Platelet Estimate Normal, Ovalocytes 1+, Acanthocytes (Spur) 1+ 09/23/20 04:50: Sodium 136, Potassium 3.6, Chloride 105, Carbon Dioxide 24, Anion Gap 10.6, BUN 19, Creatinine 0.70, Estimated Creat Clear 66, Estimated GFR 110, Est GFR ( Amer) 133, Glucose 110 H, Calcium 8.4, Total Bilirubin 0.8, AST 34 D, ALT 34, Alkaline Phosphatase 124, Total Protein 6.1 L, Albumin 3.1 L, Globulin 3.0, Albumin/Globulin Ratio 1.0 L 09/23/20 12:10: Magnesium 2.1 09/23/20 12:10: Troponin I 0.04 H I & O for Last 24 hours: Intake & Output 09/21/20 09/22/20 09/23/20 09/24/20 11:59 11:59 11:59 11:59 Intake Total 1150 / 1150 960 / 960 2537 / 2537 Output Total 650 / 650 2700 / 2700 1550 / 1550 1825 / 1825 Balance 500 / 500 -1740 / -1740 987 / 987 -1825 / -1825 Weight 160 lb 160 lb Narrative: Awake and alert, wearing his BiPAP. He is a bit anxious. He is tachypneic. Heart is regular. Chest with bibasilar rales. No wheezes. Abdomen is soft and nondistended with no tenderness. Assessment and Plan (1) Pneumonia due to COVID-19 virus Status: Acute Category: Medical Code(s): U07.1 - COVID-19; J12.89 - Other viral pneumonia (2) Acute hypoxemic respiratory failure due to COVID-19 Status: Acute Category: Medical Code(s): U07.1 - COVID-19; J96.01 - Acute respiratory failure with hypoxia (3) Hypertension Status: Chronic Category: Medical Code(s): I10 - Essential (primary) hypertension (4) Elevated liver function tests Status: Acute Category: Medical Code(s): R79.89 - Other specified abnormal findings of blood chemistry (5) Hypokalemia Status: Acute Category: Medical Code(s): E87.6 - Hypokalemia (6) PAF (paroxysmal atrial fibrillation) Status: Acute Category: Medical Code(s): I48.0 - Paroxysmal atrial fibrillation (7) Hyperlipidemia Status: Acute Category: Medical Code(s): E78.5 - Hyperlipidemia, unspecified - Assessment and plan all Dx Assessment and Plan for all problems:: He is maintaining oxygen saturation on current BiPAP settings addition remains guarded. Continue per pulmonology recommendations.
[2020-09-23 10:04] LABS: Alpha-1-Antitrypsin 272 mg/dL (101-187)
--- NOTE | 2020-09-23 11:08 | HMH.CNCARD ---
History of Present Illness Consult date: 09/23/20 Requesting physician: [facility] Consult reason: atrial fibrillation Chief complaint: A. fib with RVR Additional Medical History:: 1. HTN 2. Hyperlipidemia 3. Ex-smoker, stopped in 1994 4. COVID 19 infection, 09/2020 5. Hypothyroidism, on replacement History of present illness: 74-year-old white male with history of hypertension, hyperlipidemia and remote tobacco use admitted to the hospital for COVID-19 infection. Patient currently on BiPAP therapy due to hypoxemia on Vapotherm treatment. Patient having episodes of paroxysmal atrial fibrillation with a rapid ventricular response that is responding to IV beta-yessenia therapy. He has no prior history of A. fib and no prior cardiac history. BNP is mildly elevated at 465 with normal troponin. Cardiology consulted for evaluation and recommendations. [facility] History Medical History: Reports:: Hyperlipidemia, Hypertension Denies:: Chronic Obstructive Pulmonary Disease (COPD), Depression, Diabetes Mellitus Type 2 *Have you ever received a pneumonia vaccine?: Yes *Have you received a flu vaccine this season?: Yes Other Medical History: Reports: Hypothyroidism Other Surgeries: Yes: No Previous Surgery - *Social History Last grade of school completed: High school graduate Alcohol Intake: never *Occupational Status:: retired *Travel in the last 8 weeks: None - Psychiatric History Pschychiatric History:: Denies:: Depression Family Hx:: Coronary Artery Disease, no Diabetes Meds Home Medications Medication Instructions Recorded Confirmed Type Simvastatin 40 mg PO HS 09/20/20 09/21/20 History hydroCHLOROthiazide 12.5 mg PO DAILY 09/20/20 09/20/20 History [Hydrochlorothiazide 12.5mg Tab] Levothyroxine Sodium 88 mcg PO DAILY 09/21/20 09/21/20 History [Levothyroxine 88mcg (0.088mg) Tab] Allergies Allergy/AdvReac Type Severity Reaction Status Date / Time No Known Allergies Allergy Verified 09/20/20 10:35 Exam Vital signs and Labs for Last 24 Hours: Temp Pulse Resp BP Pulse Ox 98.6 F 81 22 144/69 H 93 L 09/23/20 07:52 09/23/20 07:52 09/23/20 07:52 09/23/20 07:52 09/23/20 04:00 Laboratory Results - last 24 hr 09/20/20 10:15: [id number]-[id number] 272 H 09/23/20 04:50: WBC 10.8 D, RBC 4.41 L, Hgb 14.1, Hct 39.2 L, MCV 88.9, MCH 32.0 H, MCHC 36.0 H, RDW 14.0, Plt Count 178 D, MPV 8.1, Neut % (Auto) 86.5 H, Lymph % (Auto) 7.1 L, Delta % (Auto) 6.1, Eos % (Auto) 0.1, Baso % (Auto) 0.3, Neut # (Auto) 9.4 H, Lymph # (Auto) 0.8, Delta # (Auto) 0.7, Eos # (Auto) 0.0, Baso # (Auto) 0.0, Total Counted 100, Neutrophils % (Manual) 84 H, Lymphocytes % (Manual) 13, Monocytes % (Manual) 3, Platelet Estimate Normal, Ovalocytes 1+, Acanthocytes (Spur) 1+ 09/23/20 04:50: Sodium 136, Potassium 3.6, Chloride 105, Carbon Dioxide 24, Anion Gap 10.6, BUN 19, Creatinine 0.70, Estimated Creat Clear 66, Estimated GFR 110, Est GFR ( Amer) 133, Glucose 110 H, Calcium 8.4, Total Bilirubin 0.8, AST 34 D, ALT 34, Alkaline Phosphatase 124, Total Protein 6.1 L, Albumin 3.1 L, Globulin 3.0, Albumin/Globulin Ratio 1.0 L I & O for Last 24 hours: Intake & Output 09/20/20 09/21/20 09/22/20 09/23/20 11:59 11:59 11:59 11:59 Intake Total 1150 / 1150 960 / 960 2537 / 2537 Output Total 650 / 650 2700 / 2700 1325 / 1325 Balance 500 / 500 -1740 / -1740 1212 / 1212 Weight 175 lb 160 lb 160 lb - Constitutional mild distress Comments: In ICU/COVID unit on BiPAP therapy. - *Routine HEENT Exam Head: Present: normocephalic Eye: Present: EOMI, PERRL ENT: Present: mucous membranes moist - *Routine Neck Exam Present: supple. Absent: lymphadenopathy - *Routine Respiratory Exam Present: decreased breath sounds, wheezes - *Routine Cardiovascular Exam Present: RRR - *Routine Abdominal Exam Present: soft, normoactive bowel sounds. Absent: tenderness - *Routine Extremities Exam Absent: cyanosis,
[2020-09-23 12:27] LABS: Magnesium 2.1 mg/dl (1.6-2.3)
--- NOTE | 2020-09-23 12:42 | HMH.PULMPN ---
Internal Medicine - PN: Subj *Date: 09/23/20 *Time: 12:42 Interval history: Patient respiratory status remained stable, with no worsening. Exam Radiology reports for Last 24 Hours: X-ray showed bilateral worsening air space disease - Constitutional Comment:: Patient appears to be in respiratory distress - HENMT Exam HENMT: normocephalic, atraumatic - Eye Exam Eyes:: normal appearance both eyes and related structures - Neck Exam Neck:: thyroid normal, no lymphadenopathy - Respiratory Exam Comments: BiPAP in place, patient saturating 89 to 91%. BiLateral coarse breath sounds heard - Cardiovascular Exam Cardiac:: S1, S2 - GI Exam GI:: soft, no hepatosplenomegaly - Skin Exam Skin: warm, no rash - Neurological Exam Neurological: alert, awake, normal cognition - Extremities Exam Extremities: no cyanosis, no clubbing, no edema - Psychiatric Exam Psychiatric: normal affect Assessment and Plan (1) Pneumonia due to COVID-19 virus Status: Acute Category: Medical Code(s): U07.1 - COVID-19; J12.89 - Other viral pneumonia (2) Acute hypoxemic respiratory failure due to COVID-19 Status: Acute Category: Medical Code(s): U07.1 - COVID-19; J96.01 - Acute respiratory failure with hypoxia (3) Hypertension Status: Chronic Category: Medical Code(s): I10 - Essential (primary) hypertension (4) Elevated liver function tests Status: Acute Category: Medical Code(s): R79.89 - Other specified abnormal findings of blood chemistry (5) Hypokalemia Status: Acute Category: Medical Code(s): E87.6 - Hypokalemia (6) PAF (paroxysmal atrial fibrillation) Status: Acute Category: Medical Code(s): I48.0 - Paroxysmal atrial fibrillation (7) Hyperlipidemia Status: Acute Category: Medical Code(s): E78.5 - Hyperlipidemia, unspecified - Assessment and plan all Dx Assessment and Plan for all problems:: #Acute hypoxic respiratory failure: #COVID-19 pneumonia: 74-year-old no significant smoking history last month 50 years ago no prior respiratory complaints presented with worsening shortness of breath and found to be positive for COVID-19 pneumonia. CTA did not show any evidence of pulmonary emboli however showed diffuse bilateral groundglass opacity along with significant emphysematous changes. Patient respiratory status worsened needing BiPAP to maintain oxygen saturations repeat chest x-ray from yesterday showed bilateral worsening airspace disease. Patient this morning on BiPAP saturating 89 to 91%. Afebrile, no evidence of leukocytosis. Renal function stable. Hemodynamically stable. Patient also witnessed likely new onset atrial fibrillation respiratory initially controlled with 1 dose of Lopressor however patient has had recurrent episodes of atrial fibrillation without any hemodynamic compromise. Net negative around 500 cc yesterday. Patient respiratory status overall stable but critical needing high BiPAP ventilatory settings. We will diurese the patient optimize volume status undisclosed antibiotics for half treatment. Patient explained in detail regarding CRRT and he wants everything to be done including intubation mechanical ventilation and CPR if things were to worsen. Plan: - Lasix 60 mg IV once -follow urine output and determine the need for additional doses of Lasix - Given worsening chest x-ray infiltrates and respiratory failure will escalate Abx to treat HAP with vancomycin and cefepime -F/U Sputum cultures and nasal MRSA PCR ? Continue dexamethasone and remdesivir for COVID-19 pneumonia - Continue oxygen supplementation to maintain oxygen saturations of 88 to 92%, continue current BiPAP settings - Continue DuoNebs every 6 hours scheduled and start budesonide every 12 scheduled - F/U Alpha-1 antitrypsin level - F/U Cards recommendations for A.fib management Total critical care time spent on this patient is 35 minutes managing acute hypoxic respiratory failure needing
--- NOTE | 2020-09-23 13:02 | HMH.PHACONS ---
- Pharmacy Consult Date: 09/23/20 Time: 13:02 Referring provider: DR. TEMPLETON Reason for Consult:: VANCOMYCIN DOSING Allergies and ADEs:: Allergies Allergy/AdvReac Type Severity Reaction Status Date / Time No Known Allergies Allergy Verified 09/20/20 10:35 Home Medications:: Home Medications Medication Instructions Recorded Confirmed Type Simvastatin 40 mg PO HS 09/20/20 09/21/20 History hydroCHLOROthiazide 12.5 mg PO DAILY 09/20/20 09/20/20 History [Hydrochlorothiazide 12.5mg Tab] Levothyroxine Sodium 88 mcg PO DAILY 09/21/20 09/21/20 History [Levothyroxine 88mcg (0.088mg) Tab] Height: 1.75 m Weight: 72.575 kg Laboratory Results:: Laboratory Results - last 24 hr 09/20/20 10:15: [id number]-8-Sbodebfzpgm 272 H 09/23/20 04:50: WBC 10.8 D, RBC 4.41 L, Hgb 14.1, Hct 39.2 L, MCV 88.9, MCH 32.0 H, MCHC 36.0 H, RDW 14.0, Plt Count 178 D, MPV 8.1, Neut % (Auto) 86.5 H, Lymph % (Auto) 7.1 L, [place] % (Auto) 6.1, Eos % (Auto) 0.1, Baso % (Auto) 0.3, Neut # (Auto) 9.4 H, Lymph # (Auto) 0.8, [place] # (Auto) 0.7, Eos # (Auto) 0.0, Baso # (Auto) 0.0, Total Counted 100, Neutrophils % (Manual) 84 H, Lymphocytes % (Manual) 13, Monocytes % (Manual) 3, Platelet Estimate Normal, Ovalocytes 1+, Acanthocytes (Spur) 1+ 09/23/20 04:50: Sodium 136, Potassium 3.6, Chloride 105, Carbon Dioxide 24, Anion Gap 10.6, BUN 19, Creatinine 0.70, Estimated Creat Clear 66, Estimated GFR 110, Est GFR ( Amer) 133, Glucose 110 H, Calcium 8.4, Total Bilirubin 0.8, AST 34 D, ALT 34, Alkaline Phosphatase 124, Total Protein 6.1 L, Albumin 3.1 L, Globulin 3.0, Albumin/Globulin Ratio 1.0 L 09/23/20 12:10: Magnesium 2.1 Medical History: Reports:: Hyperlipidemia, Hypertension Denies:: Chronic Obstructive Pulmonary Disease (COPD), Depression, Diabetes Mellitus Type 2 Assessment and Plan (1) Pneumonia due to COVID-19 virus Status: Acute Category: Medical Code(s): U07.1 - COVID-19; J12.89 - Other viral pneumonia (2) Acute hypoxemic respiratory failure due to COVID-19 Status: Acute Category: Medical Code(s): U07.1 - COVID-19; J96.01 - Acute respiratory failure with hypoxia (3) Hypertension Status: Chronic Category: Medical Code(s): I10 - Essential (primary) hypertension (4) Elevated liver function tests Status: Acute Category: Medical Code(s): R79.89 - Other specified abnormal findings of blood chemistry (5) Hypokalemia Status: Acute Category: Medical Code(s): E87.6 - Hypokalemia (6) PAF (paroxysmal atrial fibrillation) Status: Acute Category: Medical Code(s): I48.0 - Paroxysmal atrial fibrillation (7) Hyperlipidemia Status: Acute Category: Medical Code(s): E78.5 - Hyperlipidemia, unspecified - Assessment and plan all Dx Assessment and Plan for all problems:: Objective: Age: 74 yo Serum creatinine: 0.70 mg/dL Height: 68.9 Inches Weight (kg): 72.5 Assessment: IBW (kg): 70.47 Dosing wt(kg): 72.5 Estimated Creatinine clearance (ml/min): 90.9 CRCL method: Cockcroft and Gault using ibw(default). Drug selected: Vancomycin Loading dose (mg): 0 Vd (liters): 50.8 (factor used: 0.7 L/kg) Conor (hr-1): 0.080 Half life (hrs): 8.66 Recommended dose: 1250 mg Interval: 12 hrs Infusion time (hrs): 2.0 Predicted peak (mcg/mL): 36.8 Predicted trough (mcg/mL): 16.54 Total body weight is being used for vancomycin dosing. Recommendations: Give Vancomycin 1250 mg q 12 hrs with an expected Cpeak of 36.8 mcg/ml and an expected Ctrough of 16.54 mcg/ml Thank you for the consult, will continue to follow. -LONNIE YIP, [place]
[2020-09-23 14:43] LABS: Troponin I 0.04 ng/ml (0.00-0.034)
--- NOTE | 2020-09-23 15:41 | PC.NURSE ---
Patient has been pleasant and cooperative this shift, remains on bipap at 95%, Patient has had several periods this shift where he has been in atrial fibrillation/flutter per telemetry with uncontrolled rate, made aware, given IV metoprolol twice this shift, started on PO metoprolol, patient is currently in SR with rate of 62, O2 saturations have remained 90-95% this shift on bipap, oxygen saturations drop quickly with removal of bipap for even a drink of water, pt denies being short of breath and states he feels as though his breathing in better today than yesterday, lung sounds diminished t/o, abd soft and nontender, active bowel sounds in all quads, perrla, alert and oriented x4, peripheral pulses 2+, no edema noted, denies any CP, voids per urinal without difficulty, given lasix IV this am with good output, urine output after lasix approximately 2049 at this time, will continue to monitor patient closely.
--- NOTE | 2020-09-23 22:38 | PC.NURSE ---
2119 patient converted back into afib 130s
--- NOTE | 2020-09-23 22:40 | PC.NURSE ---
0554 dr. loyd paged, after receiving return call he was notified of sats sustaining 85%, conversion back into afib 130s-140s, rr 24. notified that patient does not look in distress, denies soa, no use of accessory muscles at this time. new order received for afib.
--- NOTE | 2020-09-23 22:45 | PC.NURSE ---
2225 dr. loyd notified of continued afib and respiratory status. new order received for additional dose of lopressor and order received to adjust pressures on bipap if needed.
--- NOTE | 2020-09-23 22:47 | PC.NURSE ---
8313 patient converted back to sr with pacs and pvcs
[2020-09-24] VITALS (28 sets, daily range): BP systolic 87–139; BP diastolic 44–83; PULSE 45–106; RESP 6–38; TEMP 36.2–36.8; O2SAT 82–97
--- NOTE | 2020-09-24 03:09 | PC.NURSE ---
marcella currently flipping in and out of atrial fib
--- NOTE | 2020-09-24 05:50 | PC.NURSE ---
patient remained in atrial fib with rate 90-110 for approximately 1 hr then converted back to sb/sr. sats have remained 88% or above after pressure adjusted on bipap.
--- NOTE | 2020-09-24 05:51 | PC.NURSE ---
Unable to obtain patients weight this am . RN aware .
--- NOTE | 2020-09-24 07:44 | XR_ITS ---
PROCEDURE: XR CHEST PORTABLE CLINICAL HISTORY: pneumonia,increased bipap settings COMPARISON: CR XR CHEST PORTABLE from 09/20/[address] ANGIO CHEST from 09/21/2020 CR XR CHEST PORTABLE from 09/22/2020 CR XR CHEST PORTABLE from 09/22/2020 FINDINGS: 0940 hours. There is diffuse bilateral lower lobe airspace disease consistent with bilateral pneumonia which appears slightly worse. There is superimposed emphysema. Normal heart size. IMPRESSION: Worsening bilateral lower lobe pneumonia Dictated by: Shahram Aguilar MD 09/24/2020 12:32 Shahram Aguilar MD in [facility] 09/24/2020 12:32
--- NOTE | 2020-09-24 07:54 | HMH.PNCARD ---
Subjective Date: 09/24/20 Time: 07:55 Principal diagnosis: COVID 19, PAF with RVR Interval history: 74-year-old white male in the ICU on BiPAP with increasing oxygen demand. Patient denies any chest pain, pressure or tightness. He states he is breathing better than yesterday after having a significant urine output of 2-1/2 L following IV diuretic therapy. He continues to have intermittent episodes of A. fib with RVR that responded to as needed IV beta-yessenia therapy. Echocardiogram from 09/22/2020 shows normal ejection fraction with no wall motion abnormalities. Mild bump in troponin likely secondary to demand ischemia in the setting of A. fib with RVR. Exam Vital signs and Labs for Last 24 Hours: Temp Pulse Resp BP Pulse Ox 97.6 F 72 28 H 139/69 91 L 09/24/20 07:45 09/24/20 07:45 09/24/20 07:45 09/24/20 07:45 09/24/20 07:45 Laboratory Results - last 24 hr 09/20/20 10:15: Tersc-5-Tqswednxxkb 272 H 09/23/20 12:10: Magnesium 2.1 09/23/20 12:10: Troponin I 0.04 H I & O for Last 24 hours: Intake & Output 09/21/20 09/22/20 09/23/20 09/24/20 11:59 11:59 11:59 11:59 Intake Total 1150 / 1150 960 / 960 2537 / 2537 1713 / 1713 Output Total 650 / 650 2700 / 2700 1550 / 1550 2850 / 2850 Balance 500 / 500 -1740 / -1740 987 / 987 -1137 / -1137 Weight 160 lb 160 lb Microbiology Reports for the Last 24 Hours: Microbiology 09/23/20 21:00 Sputum - Expectorated Sputum Gram Stain - Final - Constitutional no acute distress - *Routine HEENT Exam Head: Present: normocephalic Eye: Present: EOMI, PERRL ENT: Present: mucous membranes moist - *Routine Neck Exam Present: supple. Absent: lymphadenopathy - *Routine Respiratory Exam Present: decreased breath sounds Comments: Breath sounds decreased but improved compared with yesterday. No wheezing noted today. - *Routine Cardiovascular Exam Present: RRR - *Routine Abdominal Exam Present: soft, normoactive bowel sounds. Absent: tenderness - *Routine Extremities Exam Absent: cyanosis, clubbing, edema - *Routine Skin Exam Present: warm. Absent: rash - *Routine Neurological Exam Present: alert, oriented X3 Progress Note: A&P (1) Pneumonia due to COVID-19 virus Status: Acute (2) Acute hypoxemic respiratory failure due to COVID-19 Status: Acute (3) Hypertension Status: Chronic (4) Elevated liver function tests Status: Acute (5) Hypokalemia Status: Acute (6) PAF (paroxysmal atrial fibrillation) Status: Acute (7) Hyperlipidemia Status: Acute Assessment and Plan for All Diagnoses:: 1. COVID-19/pneumonia with increasing oxygen demand, per pulmonary and PCP. Will obtain a follow-up chest x-ray today. 2. Paroxysmal atrial fibrillation with RVR related to pulmonary issues, currently in sinus rhythm on metoprolol succinate 50 mg daily with IV metoprolol as needed. Xarelto therapy started yesterday for elevated CHADS-VASC score and potential associated coagulopathy related to COVID-19. 3. Hypertension 4. Hypokalemia, on replacement therapy 5. Mildly elevated troponin felt secondary to demand ischemia. Echocardiogram shows normal EF with no wall motion abnormalities. No further work-up at this time but would anticipate stress test in the future when patient's pulmonary status has returned to near baseline. Lab work today including CBC, BMP, BNP along with obtaining a portable chest x-ray.
--- NOTE | 2020-09-24 08:20 | P.PN_ITS ---
Internal Medicine - PN: Subj *Date: 09/24/20 *Time: 08:20 Interval history: States he feels good. Thinks he is breathing better than yesterday. Diuresed 2.5 liters after Lasix yesterday. Still with intermittent bouts of A-fib. Exam Vital signs and Labs for Last 24 Hours: Temp Pulse Resp BP Pulse Ox 97.6 F 72 28 H 139/69 91 L 09/24/20 07:45 09/24/20 07:45 09/24/20 07:45 09/24/20 07:45 09/24/20 07:45 Laboratory Results - last 24 hr 09/20/20 10:15: Anrse-8-Ajshzualjae 272 H 09/23/20 12:10: Magnesium 2.1 09/23/20 12:10: Troponin I 0.04 H 09/24/20 08:23: WBC 12.4 H, RBC 4.74, Hgb 14.2, Hct 43.2, MCV 91.0, MCH 29.9, MCHC 32.9, RDW 14.3, Plt Count 161, MPV 8.6, Neut % (Auto) 91.9 H, Lymph % (Auto) 4.8 L, [place] % (Auto) 2.6, Eos % (Auto) 0.3, Baso % (Auto) 0.3, Neut # (Auto) 11.4 H, Lymph # (Auto) 0.6 L, [place] # (Auto) 0.3, Eos # (Auto) 0.0, Baso # (Auto) 0.0 09/24/20 08:23: Sodium 136, Potassium 3.9, Chloride 104, Carbon Dioxide 23, Anion Gap 12.9, BUN 23 H, Creatinine 0.80, Estimated Creat Clear 66, Estimated GFR 94, Est GFR ( Amer) 114, Glucose 106 H, Calcium 8.4 09/24/20 08:23: NT-Pro-B Natriuret Pep 1030 H I & O for Last 24 hours: Intake & Output 09/21/20 09/22/20 09/23/20 09/24/20 11:59 11:59 11:59 11:59 Intake Total 1150 / 1150 960 / 960 2537 / 2537 1833 / 1833 Output Total 650 / 650 2700 / 2700 1550 / 1550 2850 / 2850 Balance 500 / 500 -1740 / -1740 987 / 987 -1017 / -1017 Weight 160 lb 160 lb Microbiology Reports for the Last 24 Hours: Microbiology 09/23/20 21:00 Sputum - Expectorated Sputum Gram Stain - Final Narrative: Very alert. Appears comfortable. Chest with few bibasilar rales. No wheezes. Abdomen is soft and nondistended with no tenderness. Extremities no edema. Assessment and Plan (1) Pneumonia due to COVID-19 virus Status: Acute Category: Medical Code(s): U07.1 - COVID-19; J12.89 - Other viral pneumonia (2) Acute hypoxemic respiratory failure due to COVID-19 Status: Acute Category: Medical Code(s): U07.1 - COVID-19; J96.01 - Acute respiratory failure with hypoxia (3) Hypertension Status: Chronic Category: Medical Code(s): I10 - Essential (primary) hypertension (4) Elevated liver function tests Status: Acute Category: Medical Code(s): R79.89 - Other specified abnormal findings of blood chemistry (5) Hypokalemia Status: Acute Category: Medical Code(s): E87.6 - Hypokalemia (6) PAF (paroxysmal atrial fibrillation) Status: Acute Category: Medical Code(s): I48.0 - Paroxysmal atrial fibrillation (7) Hyperlipidemia Status: Acute Category: Medical Code(s): E78.5 - Hyperlipidemia, unspecified - Assessment and plan all Dx Assessment and Plan for all problems:: Subjectively he is feeling okay but clinically he is requiring higher pressures with the BiPAP. He is currently at 16/9 and 100%. Will discuss intubation criteria with Dr. Chacon.
[2020-09-24 08:35] LABS: Chloride 104 mmol/L (98-107); Potassium 3.9 mmoL/L (3.5-5.1); Sodium 136 mmol/L (136-145)
[2020-09-24 08:36] LABS: Basophils % 0.3 % (0.1-2.0); Eosinophils % 0.3 % (0.1-12.0); Hematocrit 43.2 % (42.0-52.0); Hemoglobin 14.2 g/dL (14.1-18.0); Lymphocytes # 0.6 K/mm3 (0.7-4.5); Lymphocytes % 4.8 % (10-50); Mean Corpuscular HGB Conc 32.9 g/dL (31.8-35.4); Mean Corpuscular Hemoglobin 29.9 pg (27.0-31.2); Mean Platelet Volume 8.6 fl (7.4-10.4); Monocytes # 0.3 K/mm3 (0.1-1.0); Monocytes % 2.6 % (1.7-9.3); Neutrophils # 11.4 K/mm3 (1.8-7.8); Neutrophils % 91.9 % (37.0-80.0); Platelet Count 161 K/mm3 (142-424); Red Blood Count 4.74 M/mm3 (4.60-6.20); Red Cell Distribution Width 14.3 % (11.5-17.5); White Blood Count 12.4 K/mm3 (4.8-10.8)
[2020-09-24 08:38] LABS: Anion Gap 12.9 mEq/L (5-15); Blood Urea Nitrogen 23 mg/dl (9-20); Calcium 8.4 mg/dl (8.4-10.2); Carbon Dioxide 23 mmol/L (22.0-30.0); Creatinine Clearance Estimated 66 mL/min (50-200); Estimated Glomerular Filt Rate 94 ml/min (>60); GFR (African American) 114 ML/MIN (>60); Glucose 106 mg/dl (74-100)
[2020-09-24 08:43] LABS: MANUAL DIFFERENTIAL MANUAL DIFFERENTIAL (MANUAL DIFF)
[2020-09-24 08:48] LABS: NT Pro Brain Natriuretic Pep. 1030 pg/mL (0-450)
[2020-09-24 09:03] LABS: Lymphocytes % 9 % (10-50); Monocytes % 4 % (2-9); Neutrophils % 87 % (42-76); Platelet Estimate Normal; RBC Morphology Normal; Total Cells Counted 100
--- NOTE | 2020-09-24 11:15 | XR_ITS ---
PROCEDURE: XR CHEST PORTABLE CLINICAL HISTORY: intubated Respiratory failure COMPARISON: CT CT ANGIO CHEST from 09/21/2020 CR XR CHEST PORTABLE from 09/22/2020 CR XR CHEST PORTABLE from 09/22/2020 CR XR CHEST PORTABLE from 09/24/2020 FINDINGS: 1029 hours. Endotracheal tube has been inserted. The tip is in good position 6.6 cm above the mazin. Nasogastric tube has also been inserted. The tip is not visible on the film but is at least at or below the GE junction. There remains diffuse bilateral airspace disease in the lower lobes. IMPRESSION: Endotracheal tube in good position. Nasogastric tube tip not visible on the film but at least at or below the GE junction. Dictated by: Shahram Aguilar MD 09/24/2020 12:33 Shahram Aguilar MD in [facility] 09/24/2020 12:33
--- NOTE | 2020-09-24 11:16 | XR_ITS ---
PROCEDURE: XR CHEST PORTABLE CLINICAL HISTORY: ng placement COMPARISON: CT CT ANGIO CHEST from 09/21/2020 CR XR CHEST PORTABLE from 09/22/2020 CR XR CHEST PORTABLE from 09/24/2020 CR XR CHEST PORTABLE from 09/24/2020 FINDINGS: 11:08 a.m.. NG tube tip is in the region of the body of the stomach. Consolidation is present in both lower lobes. No acute bony abnormalities. IMPRESSION: NG tube tip in body of stomach Dictated by: Shahram Aguilar MD 09/24/2020 12:34 Shahram Aguilar MD in [facility] 09/24/2020 12:34
[2020-09-24 11:30] LABS: ABG Base Excess -8.7 mmol/L (-2.4-2.3); ABG HCO3 18.1 mmhg (22.0-26.0); ABG Oxygen Saturation 96 % (90-100); ABG PCO2 40.2 mmhg (35.0-45.0); ABG PH 7.27 mmol/L (7.35-7.45); ABG PO2 93.7 mmhg (80-100); ABG TCO2 19.4 mmhg (23-27)
[2020-09-24 11:31] LABS: Allen's Test Patient Unable; Oxygen 100 %; PEEP 10; Source Right Radial; Tidal Volume 440; Vent Rate 24
--- NOTE | 2020-09-24 11:45 | PC.NURSE ---
Pt intubated a 10:40 by Fred Frankel. 24 at the lip. Vent settings 440, PEEP of 10, rate of 24, and 100%
--- NOTE | 2020-09-24 11:45 | PC.NURSE ---
DURING DR. TEMPLETON ROUND HE SPOKE WITH PT REGARDING INTUBATING. PT WAS ANXIOUS. STAFF SPOKE WITH PT AND PT AGREED. HOUSE WAS NOTIFIED.
[2020-09-24 11:55] LABS: Microscopic, Urine URINE MICROSCOPIC (MICROSCOPIC)
[2020-09-24 11:56] LABS: Appearance,Urine CLOUDY (Clear); Bilirubin,Urine Negative (Negative); Blood, Urine 3+ (Negative); Color,Urine YELLOW (Yellow); Glucose,Urine (UA) Negative (Negative); Ketones,Urine 2+ (Negative); Leukocyte Esterase,Urine Negative (Negative); Nitrate,Urine Negative (Negative); PH,Urine 6.5 (5.0-8.5); Protein,Urine 1+ (Negative); Urobilinogen,Urine 0.2 EU/dl (0.2)
[2020-09-24 12:05] LABS: Amorphous Sediment,Urine Trace /lpf; RBC,Urine TNTC #/hpf (0-3)
--- NOTE | 2020-09-24 13:59 | HMH.PULMPN ---
Internal Medicine - PN: Subj *Date: 09/24/20 *Time: 13:59 Interval history: Patient respiratory status remained stable since yesterday with no significant improvement. Exam - HENMT Exam HENMT: normocephalic, atraumatic - Eye Exam Eyes:: normal appearance both eyes and related structures - Neck Exam Neck:: normal visual inspection, thyroid normal, no lymphadenopathy - Respiratory Exam Comments: Patient does not appear to be in respiratory distress this morning however his oxygen requirement did not improve, needing BiPAP at 100% FiO2 to maintain his saturations. Try attempted to wean patient high flow nasal cannula but significant desaturation to lower 80s. - Cardiovascular Exam Cardiac:: S1, S2 - GI Exam GI:: soft, no hepatosplenomegaly - Skin Exam Skin: warm, no rash, dry - Neurological Exam Neurological: alert, awake, normal cognition - Extremities Exam Extremities: no cyanosis, no clubbing, no edema - Psychiatric Exam Psychiatric: normal affect Assessment and Plan (1) Pneumonia due to COVID-19 virus Status: Acute Category: Medical Code(s): U07.1 - COVID-19; J12.89 - Other viral pneumonia (2) Acute hypoxemic respiratory failure due to COVID-19 Status: Acute Category: Medical Code(s): U07.1 - COVID-19; J96.01 - Acute respiratory failure with hypoxia (3) Hypertension Status: Chronic Category: Medical Code(s): I10 - Essential (primary) hypertension (4) Elevated liver function tests Status: Acute Category: Medical Code(s): R79.89 - Other specified abnormal findings of blood chemistry (5) Hypokalemia Status: Acute Category: Medical Code(s): E87.6 - Hypokalemia (6) PAF (paroxysmal atrial fibrillation) Status: Acute Category: Medical Code(s): I48.0 - Paroxysmal atrial fibrillation (7) Hyperlipidemia Status: Acute Category: Medical Code(s): E78.5 - Hyperlipidemia, unspecified - Assessment and plan all Dx Assessment and Plan for all problems:: #Acute hypoxic respiratory failure: #COVID-19 pneumonia: 74-year-old no significant smoking history last month 50 years ago no prior respiratory complaints presented with worsening shortness of breath and found to be positive for COVID-19 pneumonia. CTA from earlier this week did not show any evidence of pulmonary embolism however showed diffuse groundglass pulmonary opacities with significant emphysematous changes. Patient respiratory status overall worsened in the last 4 days, initially on high flow then escalated to BiPAP and patient has been requiring continuous BiPAP for the last 48 hours without any improvement in his respiratory symptoms. Patient has been diuresed the last 2 days and also antibiotics were escalated once again for hospital-acquired pneumonia. Given his no improvement in respiratory status, requiring BiPAP for the last 48 hours continuously and concern for hospital-acquired pneumonia this patient will benefit from intubation on lung protective ventilation. Discussed with the patient in detail regarding the risks and benefits of intubation and the possible outcomes and patient expresses complete understanding and agreed to proceed with intubation and mechanical ventilation. ABG post intubation showed evidence of metabolic acidosis will follow with a repeat ABG in the lactate Plan: -Continue current lung protective mechanical ventilatory support with PEEP of 10, tidal volume of 442 of 80 with O2 saturation goal of 88 to 92%. -Continue vancomycin and cefepime for hospital-acquired pneumonia. Will follow with the tracheal aspirate cultures and sputum cultures. F/u Nasal MRSA PCR - VAP bundle -Follow with a repeat ABG and lactate -Sedation and pain control with propofol and fentanyl with a RASS goal of negative 1 to 0 and CPOT goal of less than or equal to 2 -We will discontinue metoprolol given relative bradycardia from sedation -we will closely monitor his heart rate and will reevaluate the need for metoprolo
[2020-09-24 14:31] LABS: ABG Base Excess -5.3 mmol/L (-2.4-2.3); ABG HCO3 20.1 mmhg (22.0-26.0); ABG Oxygen Saturation 92 % (90-100); ABG PCO2 36.2 mmhg (35.0-45.0); ABG PH 7.36 mmol/L (7.35-7.45); ABG PO2 67.6 mmhg (80-100); ABG TCO2 21.2 mmhg (23-27)
--- NOTE | 2020-09-24 14:32 | DIET.NUTRFU ---
Pt has been intubated, recommend initiating continuous enteral nutrition regimen when appropriate. Upon MD order, recommend initiating continuous TF regimen of Pulmocare 1.5 at 20ml/hr and advancing q 8 hours as tolerated to goal rate of 60ml/hr. Pt is currently meeting fluid needs through IVF, recommend minimal water flushes of 60ml with GRV checks. Will monitor IVF. This regimen provides 1980kcal, 83g protein, 140g Carbohydrate, 123g fat, and 1036ml free water. Pt is receiving propofol, will monitor additional calories and adjust rate as indicated. Prior to intubation, pt has had diminished appetite in the past 2 days only tolerating minimal intake. Unable to take weights past 2 days.
[2020-09-24 14:33] LABS: Allen's Test Patient Unable; Oxygen 100 %; PEEP 10; Source Right Radial; Tidal Volume 440; Vent Rate 24
[2020-09-24 14:42] LABS: Lactic Acid 1.5 mmol/L (0.7-2.1)
[2020-09-24 15:42] LABS: Vancomycin,Trough 6.1 ug/mL (5.0-10.0)
--- NOTE | 2020-09-24 16:02 | HMH.PHACONS ---
- Pharmacy Consult Date: 09/24/20 Time: 16:03 Referring provider: DR. OSWALD Reason for Consult:: VANCOMYCIN TROUGH LEVEL AND DOSE CHANGE Allergies and ADEs:: Allergies Allergy/AdvReac Type Severity Reaction Status Date / Time No Known Allergies Allergy Verified 09/20/20 10:35 Home Medications:: Home Medications Medication Instructions Recorded Confirmed Type Simvastatin 40 mg PO HS 09/20/20 09/21/20 History hydroCHLOROthiazide 12.5 mg PO DAILY 09/20/20 09/20/20 History [Hydrochlorothiazide 12.5mg Tab] Levothyroxine Sodium 88 mcg PO DAILY 09/21/20 09/21/20 History [Levothyroxine 88mcg (0.088mg) Tab] Height: 1.75 m Weight: 76.374 kg Laboratory Results:: Laboratory Results - last 24 hr 09/24/20 08:23: WBC 12.4 H, RBC 4.74, Hgb 14.2, Hct 43.2, MCV 91.0, MCH 29.9, MCHC 32.9, RDW 14.3, Plt Count 161, MPV 8.6, Neut % (Auto) 91.9 H, Lymph % (Auto) 4.8 L, [place] % (Auto) 2.6, Eos % (Auto) 0.3, Baso % (Auto) 0.3, Neut # (Auto) 11.4 H, Lymph # (Auto) 0.6 L, [place] # (Auto) 0.3, Eos # (Auto) 0.0, Baso # (Auto) 0.0, Total Counted 100, Neutrophils % (Manual) 87 H, Lymphocytes % (Manual) 9 L, Monocytes % (Manual) 4, Platelet Estimate Normal, RBC Morphology Normal 09/24/20 08:23: Sodium 136, Potassium 3.9, Chloride 104, Carbon Dioxide 23, Anion Gap 12.9, BUN 23 H, Creatinine 0.80, Estimated Creat Clear 66, Estimated GFR 94, Est GFR ( Amer) 114, Glucose 106 H, Calcium 8.4 09/24/20 08:23: NT-Pro-B Natriuret Pep 1030 H 09/24/20 11:19: Specimen Source Right radial, O2 % 100, ABG pH 7.27 L, ABG pCO2 40.2, ABG pO2 93.7, ABG HCO3 18.1 L, ABG Total CO2 19.4 L, ABG O2 Saturation 96, ABG Base Excess -8.7 L, Shahram Test Patient unable, Vent Rate 24, Tidal Volume 440, PEEP 10 09/24/20 11:30: Urine Color Yellow, Urine Appearance Cloudy, Urine pH 6.5, Ur Specific [place] 1.020, Urine Protein 1+, Urine Glucose (UA) Negative, Urine Ketones 2+, Urine Blood 3+, Urine Nitrate Negative, Urine Bilirubin Negative, Urine Urobilinogen 0.2, Ur Leukocyte Esterase Negative, Urine RBC Tntc, Urine WBC 3-5, Ur Squamous Epith Cells 3-5, Amorphous Sediment Trace, Urine Bacteria None 09/24/20 14:00: Specimen Source Right radial, O2 % 100, ABG pH 7.36, ABG pCO2 36.2, ABG pO2 67.6 L, ABG HCO3 20.1 L, ABG Total CO2 21.2 L, ABG O2 Saturation 92, ABG Base Excess -5.3 L, Shahram Test Patient unable, Vent Rate 24, Tidal Volume 440, PEEP 10 09/24/20 14:20: Lactate 1.5 09/24/20 15:10: Vancomycin Trough 6.1 Medical History: Reports:: Hyperlipidemia, Hypertension Denies:: Chronic Obstructive Pulmonary Disease (COPD), Depression, Diabetes Mellitus Type 2 Assessment and Plan (1) Pneumonia due to COVID-19 virus Status: Acute Category: Medical Code(s): U07.1 - COVID-19; J12.89 - Other viral pneumonia (2) Acute hypoxemic respiratory failure due to COVID-19 Status: Acute Category: Medical Code(s): U07.1 - COVID-19; J96.01 - Acute respiratory failure with hypoxia (3) Hypertension Status: Chronic Category: Medical Code(s): I10 - Essential (primary) hypertension (4) Elevated liver function tests Status: Acute Category: Medical Code(s): R79.89 - Other specified abnormal findings of blood chemistry (5) Hypokalemia Status: Acute Category: Medical Code(s): E87.6 - Hypokalemia (6) PAF (paroxysmal atrial fibrillation) Status: Acute Category: Medical Code(s): I48.0 - Paroxysmal atrial fibrillation (7) Hyperlipidemia Status: Acute Category: Medical Code(s): E78.5 - Hyperlipidemia, unspecified - Assessment and plan all Dx Assessment and Plan for all problems:: BASED ON PATIENT FACTORS AND VANCOMYCIN TROUGH LEVEL OF 6.1, RECOMMEND CHANGING VANCOMYCIN DOSE AND INTERVAL TO 1,500MG EVERY 8 HOURS. PHARMACY WILL CONTINUE TO MONITOR AND WILL ADJUST DOSE APPROPRIATE. -LONNIE YIP, PHARMD
--- NOTE | 2020-09-24 18:44 | XR_ITS ---
PROCEDURE: XR CHEST PORTABLE CLINICAL HISTORY: central line placement Follow-up central line placement COMPARISON: CT CT ANGIO CHEST from 09/21/2020 CR XR CHEST PORTABLE from 09/24/2020 CR XR CHEST PORTABLE from 09/24/2020 CR XR CHEST PORTABLE from 09/24/2020 FINDINGS: 1848 hours Endotracheal tube tip is in good position at the T4 level. Nasogastric tube tip not visible but below the GE junction. New right subclavian central venous line present with tip in the region the SVC. A small pneumothorax has developed on the right largest in the lung base measuring 3 cm in width at the lung base laterally. Bilateral airspace disease noted in the lower lobes. IMPRESSION: Tubes and lines in good position. New right-sided pneumothorax largest in the lung base. No change bilateral pneumonia Dictated by: Sharham Aguilar MD 09/25/2020 06:28 Shahram Aguilar MD in [facility] 09/25/2020 06:28
--- NOTE | 2020-09-24 19:45 | PC.NURSE ---
1037- Patient intubated at bedside per Fred Frankle, 7.5ETT placed, 24 @lip, placement confirmed via cxr current vent settings AC, FiO2 100%, TV 440, PEEP 10, Rate 24 1400- ABG collected, results called to Dr Chacon, PEEP increased to 12 at this time per MD order
--- NOTE | 2020-09-24 19:48 | PC.NURSE ---
1040- OG tube placed @55, placement verified with CXR
--- NOTE | 2020-09-24 19:48 | PC.NURSE ---
1700- despite fluid bolus patient remains hypotensive, Dr Chacon notified, given order to place patient on levophed drip and place central line
--- NOTE | 2020-09-24 19:49 | PC.NURSE ---
1840- Central line placed in R SC per Dr Diaz, CXR ordered to confirm placement at this time
--- NOTE | 2020-09-24 19:50 | PC.NURSE ---
[facility] called at this time to notify MD that patient has right basilar pneumothorax, Dr Diaz already at bedside for chest tube placement.
--- NOTE | 2020-09-24 20:07 | XR_ITS ---
PROCEDURE: XR CHEST PORTABLE CLINICAL HISTORY: recent chest tube Follow-up chest tube placement/pneumothorax COMPARISON: CT CT ANGIO CHEST from 09/21/2020 CR XR CHEST PORTABLE from 09/24/2020 CR XR CHEST PORTABLE from 09/24/2020 CR XR CHEST PORTABLE from 09/24/2020 FINDINGS: 2010 hours Endotracheal tube nasogastric tube right subclavian central venous line are unchanged in good position. Right-sided chest tube is been placed. Right pneumothorax no longer apparent. Bilateral pneumonia unchanged. No acute bony abnormalities. IMPRESSION: Interval right-sided chest tube placement with resolved pneumothorax. Otherwise no change Dictated by: Shahram Aguilar MD 09/25/2020 06:31 Shahram Aguilar MD in [place] 09/25/2020 06:31
--- NOTE | 2020-09-24 20:10 | HMH.GSCON ---
*Admission Date: 09/20/20 *Reason for consult:: Central line placement *History of present illness: Mr. Gillette is a 74-year-old male previous smoker, last smoked 50 years ago, no prior respiratory problems, history of hypertension, dyslipidemia, hypothyroidism presented to the hospital with worsening shortness of breath for the last week and was found to be COVID-19 positive patient stated that all his friends that play golf together also tested positive for COVID-19 pneumonia. Patient also complains of abdominal symptoms. On presentation ED patient was found to hypoxic and initiated on high flow nasal cannula with which his oxygen requirements improved. Patient currently denies any productive cough. States that his breathing significantly improved since admission. Patient has had progressive respiratory deterioration. This morning he required intubation and mechanical ventilation. Several hours later he had decreasing blood pressure requiring initiation of intravenous norepinephrine. Due to the requirements for pressors Dr. Chacon requested general surgery placed central venous catheter. Review of Systems - Review of Systems Review of systems:: unable to obtain - *Neurologic Denies seizure-like activity, Denies dizziness, Denies headache(s) [facility] History I have reviewed the patient's past medical history: Yes Medical History: Reports:: Hyperlipidemia, Hypertension Denies:: Chronic Obstructive Pulmonary Disease (COPD), Depression, Diabetes Mellitus Type 2 *Have you ever received a pneumonia vaccine?: Yes *Have you received a flu vaccine this season?: Yes Other Medical History: Reports: Hypothyroidism Other Surgeries: Yes: No Previous Surgery - *Social History Last grade of school completed: High school graduate Alcohol Intake: never *Occupational Status:: retired *Travel in the last 8 weeks: None - Psychiatric History Pschychiatric History:: Denies:: Depression Family Hx:: Coronary Artery Disease, no Diabetes Meds Home Medications Medication Instructions Recorded Confirmed Type Simvastatin 40 mg PO HS 09/20/20 09/21/20 History hydroCHLOROthiazide 12.5 mg PO DAILY 09/20/20 09/20/20 History [Hydrochlorothiazide 12.5mg Tab] Levothyroxine Sodium 88 mcg PO DAILY 09/21/20 09/21/20 History [Levothyroxine 88mcg (0.088mg) Tab] Allergies Allergy/AdvReac Type Severity Reaction Status Date / Time No Known Allergies Allergy Verified 09/20/20 10:35 Exam Vital signs and Labs for Last 24 Hours: Temp Pulse Resp BP Pulse Ox 97.9 F 52 L 24 121/57 L 94 L 09/24/20 12:00 09/24/20 19:00 09/24/20 19:00 09/24/20 19:00 09/24/20 19:00 Laboratory Results - last 24 hr 09/24/20 08:23: WBC 12.4 H, RBC 4.74, Hgb 14.2, Hct 43.2, MCV 91.0, MCH 29.9, MCHC 32.9, RDW 14.3, Plt Count 161, MPV 8.6, Neut % (Auto) 91.9 H, Lymph % (Auto) 4.8 L, [place] % (Auto) 2.6, Eos % (Auto) 0.3, Baso % (Auto) 0.3, Neut # (Auto) 11.4 H, Lymph # (Auto) 0.6 L, [place] # (Auto) 0.3, Eos # (Auto) 0.0, Baso # (Auto) 0.0, Total Counted 100, Neutrophils % (Manual) 87 H, Lymphocytes % (Manual) 9 L, Monocytes % (Manual) 4, Platelet Estimate Normal, RBC Morphology Normal 09/24/20 08:23: Sodium 136, Potassium 3.9, Chloride 104, Carbon Dioxide 23, Anion Gap 12.9, BUN 23 H, Creatinine 0.80, Estimated Creat Clear 66, Estimated GFR 94, Est GFR ( Amer) 114, Glucose 106 H, Calcium 8.4 09/24/20 08:23: NT-Pro-B Natriuret Pep 1030 H 09/24/20 11:19: Specimen Source Right radial, O2 % 100, ABG pH 7.27 L, ABG pCO2 40.2, ABG pO2 93.7, ABG HCO3 18.1 L, ABG Total CO2 19.4 L, ABG O2 Saturation 96, ABG Base Excess -8.7 L, Shahram Test Patient unable, Vent Rate 24, Tidal Volume 440, PEEP 10 09/24/20 11:30: Urine Color Yellow, Urine Appearance Cloudy, Urine pH 6.5, Ur Specific [place] 1.020, Urine Protein 1+, Urine Glucose (UA) Negative, Urine Ketones 2+, Urine Blood 3+, Urine Nitrate Negative, Urine Bilirubin Negative, Urine Urobilinogen 0.2, Ur Leukocyte Esterase Negativ
--- NOTE | 2020-09-24 20:13 | HMH.PROC ---
[facility] Procedure Note Procedure Note:: Preoperative diagnosis: Requested central venous access due to requirement for intravenous pressors Postoperative diagnosis: Same Procedure performed: Placement of nontunneled 7.5 Citizen [place] triple-lumen catheter in right subclavian vein Anesthesia: Local Indications: Patient is a 74-year-old male who was admitted several days ago with diagnosis of Covid pneumonia. He has had respiratory deterioration requiring intubation and mechanical ventilation this morning. He has had decreasing blood pressure this afternoon requiring intravenous norepinephrine. Surgery was consulted for central line placement. Procedure: Consent was obtained and patient was positioned in Trendelenburg position. The left neck and chest area were prepped and draped in the standard surgical fashion. Local anesthetic was infiltrated inferior to the left clavicle. Just medial to the left pectoral deltoid groove 18-gauge needle was inserted manipulating it posterior to the clavicle. The left subclavian vein was cannulated with good return of venous flow. However guidewire could not be threaded. Additional passes were made of the needle. When the subclavian vein was cannulated again with return of blood flow once again the wire could not be threaded. Dressing was applied. Decision was made to direct attention to the right subclavian vein. New kit was opened. The right neck and chest were prepped and draped in the standard surgical fashion. Local anesthetic was infiltrated inferior to the right clavicle. Needle was inserted just medial to the deltopectoral groove manipulating the needle posterior to the clavicle. The right subclavian vein was cannulated with good return of venous blood. Guidewire was inserted. Small incision was made at the guidewire insertion site. Subcutaneous tissues were dilated. 7.5 [place] triple-lumen catheter was inserted over the guidewire using Seldinger technique. It was secured to the skin at approximately the 14 cm isrrael. All ports aspirated and flushed without difficulty. Clean dry sterile dressing was applied. Please note that post procedure x-ray revealed no evidence of any pneumothorax on the left. The newly placed central line was in good position. However, there was a right basilar pneumothorax. It seems probable this may have been present preprocedure. Given this finding however and given his high ventilator requirements and tenuous blood pressure preparation was begun for placement of right thoracostomy chest tube.
--- NOTE | 2020-09-24 20:19 | P.PCN_ITS ---
[facility] Procedure Note Procedure Note:: Preoperative diagnosis: Right basilar pneumothorax Postoperative diagnosis: Same Procedure performed: Placement of 24 [place] Citizen right thoracostomy tube Surgeon: Abraham Diaz MD Anesthesia: Local Indications: Patient is a 74-year-old white male hospitalized with Covid pneumonia who required intubation and mechanical ventilation earlier this morning. This evening his pressure was tenuous and he was started on intravenous Levophed. Surgery was asked to place central line. This was performed at the bedside with failed attempt at the left subclavian vein. It was then placed easily in the right subclavian vein. However, post procedure chest x-ray revealed right basilar pneumothorax. Procedure: Patient's right chest was prepped and draped in the standard surgical fashion. Local anesthetic was infiltrated for incision in the right anterior axillary line. Approximately 1-1/2 cm incision was made. Dissection was carried down through subcutaneous tissues over the rib and intercostal muscles using blunt Shyanne clamp dissection. Pleural space was entered. There was a good mcnally of air. 24 [place] Citizen chest tube was then placed in the right hemithorax. It was secured to the skin with 0 silk horizontal mattress suture. Clean dry sterile dressing was applied. Post procedure chest x-ray being performed at the time of this dictation.
[2020-09-25] VITALS (56 sets, daily range): BP systolic 92–162; BP diastolic 47–91; PULSE 45–102; RESP 15–39; TEMP 35.2–37.2; O2SAT 74–100; BMI 24.7
--- NOTE | 2020-09-25 01:25 | PC.NURSE ---
He continues in contact and airborne precautions. He is intubated and sedated. Sedation increased earlier in shift r/t increased alertness and pulling at tubes. Plan to began weaning propofol and levophed based on sedation and BP. He is sedated at RASS -3 at this time. Plan to wean sedation to goal of RASS -1 to 0. He has a central line in his right subclavian with a tegaderm placed over DSG to reinforce. Chest tube in place on right side. No change in vent settings. He is NPO. Pulmocare started at 2400 and is currently at 20mL/hr. 5mL residual noted at 2400 prior to start of Pulmocare. He has received a complete bed bath and linen change. Voiding per f/c. Lotion applied to dry skin on BLE.
--- NOTE | 2020-09-25 03:23 | PC.NURSE ---
spoke with elijah in pharmacy to dose heparin drip. 5000 units bolus and drip to run at 1250 units/hour
--- NOTE | 2020-09-25 03:37 | XR_ITS ---
PROCEDURE: XR CHEST PORTABLE CLINICAL HISTORY: pt desat and rapid red called by primary RN S Call Respiratory failure, desaturation COMPARISON: CT CT ANGIO CHEST from 09/21/2020 CR XR CHEST PORTABLE from 09/24/2020 CR XR CHEST PORTABLE from 09/24/2020 CR XR CHEST PORTABLE from 09/24/2020 FINDINGS: 70067 hours Endotracheal tube tip is in good position 7 cm above the mazin at the T4 level. Nasogastric tube tip in the region of the body of the stomach. Right subclavian central venous line is present with the tip in the region the SVC. Right-sided chest tube is in place. Pneumothorax is not identified. Bilateral pneumonia noted as before. IMPRESSION: No change tubes and lines. No evidence of pneumothorax. No change bilateral pneumonia. Dictated by: Shahram Aguilar MD 09/25/2020 06:24 Shahram Aguilar MD in [place] 09/25/2020 06:24
--- NOTE | 2020-09-25 03:44 | PC.NURSE ---
Pt was resting in bed. SRNA entered room and was obtaining a temperature on him and he moved his head. Low PAW pressure alarm begain to alarm and he O2 sats decreased to 80s with the lowest at 76% and respirations increased to 58. ETT placement verified still at accurate line. Rapid red called. Pt's PCP who is legislative correspondent paged and order obtained for heparin bolus and gtt. Labs obtained and heparin bolus and gtt started. Chest xray obtained and ED MD verified all tubes in correct placement with no new pneumothorax. ER MD ordered 50mcg bolus of Fentanyl r/t asynchronous breathing. He O2 sat began to increase to 90s and respirations are currently at 32.
[2020-09-25 03:56] LABS: Basophils # 0.1 K/mm3 (0-0.2); Basophils % 0.4 % (0.1-2.0); Eosinophils % 0.1 % (0.1-12.0); Hematocrit 41.4 % (42.0-52.0); Hemoglobin 13.4 g/dL (14.1-18.0); Lymphocytes # 0.8 K/mm3 (0.7-4.5); Lymphocytes % 4.8 % (10-50); Mean Corpuscular HGB Conc 32.4 g/dL (31.8-35.4); Mean Corpuscular Hemoglobin 29.1 pg (27.0-31.2); Mean Corpuscular Volume 89.8 fl (80-94); Mean Platelet Volume 8.8 fl (7.4-10.4); Monocytes # 0.4 K/mm3 (0.1-1.0); Monocytes % 2.8 % (1.7-9.3); Neutrophils # 14.7 K/mm3 (1.8-7.8); Neutrophils % 91.5 % (37.0-80.0); Platelet Count 172 K/mm3 (142-424); Red Blood Count 4.61 M/mm3 (4.60-6.20); Red Cell Distribution Width 14.3 % (11.5-17.5); White Blood Count 16.1 K/mm3 (4.8-10.8)
[2020-09-25 03:57] LABS: MANUAL DIFFERENTIAL MANUAL DIFFERENTIAL (MANUAL DIFF)
--- NOTE | 2020-09-25 04:06 | PC.NURSE ---
At approx 0407 pt's rhythm changed to afib/aflutter. EKG ordered at this time r/t rhythm change.
[2020-09-25 04:08] LABS: Anion Gap 8.3 mEq/L (5-15); Blood Urea Nitrogen 26 mg/dl (9-20); Calcium 8.1 mg/dl (8.4-10.2); Carbon Dioxide 24 mmol/L (22.0-30.0); Chloride 109 mmol/L (98-107); Creatinine Clearance Estimated 69 mL/min (50-200); Estimated Glomerular Filt Rate 110 ml/min (>60); GFR (African American) 133 ML/MIN (>60); Potassium 4.3 mmoL/L (3.5-5.1); Sodium 137 mmol/L (136-145)
[2020-09-25 04:10] LABS: Glucose 153 mg/dl (74-100)
[2020-09-25 04:11] LABS: Lymphocytes % 3 % (10-50); Neutrophils % 92 % (42-76); Platelet Estimate Normal; RBC Morphology Normal; Total Cells Counted 100
[2020-09-25 04:16] LABS: POC Glucose,Bedside 144 (70-110)
--- NOTE | 2020-09-25 04:24 | ECG_ITS ---
APPROVED REPORT Exam: Resting ECG HR:94 bpm ECG Measurements Heart Rate 94 AXES QRSd 94 QRS 82 QT 406 T 17 QTc 507 Conclusion Atrial fibrillation Low voltage QRS Septal infarct, age undetermined Prolonged QT Abnormal ECG Electronically signed by : Yovani Isbell, 09/25/2020 07:55:01
[2020-09-25 04:26] LABS: INR 1.42 (0.9-1.1); Prothrombin Time 15.3 seconds (9.4-11.8)
--- NOTE | 2020-09-25 05:01 | PC.NURSE ---
at 421, Emma Mchugh from [facility], called to inquire about pts new order for Heparin bolus and drip. Daren Mchugh acknowledges pt is already on Xarelto and it is not usually given along with Heparin. She was notified that Dr. Hein is aware and that he still ordered the Heparin d/t a suspected PE. Daren Mchugh requested that Xarelto be held. Primary RN S. Call notified.
[2020-09-25 06:39] LABS: ABG Base Excess -4.7 mmol/L (-2.4-2.3); ABG HCO3 20.5 mmhg (22.0-26.0); ABG PH 7.37 mmol/L (7.35-7.45); ABG PO2 87.7 mmhg (80-100); ABG TCO2 21.6 mmhg (23-27)
[2020-09-25 06:40] LABS: Oxygen 100% %; PEEP 12; Tidal Volume 440; Vent Rate 24
[2020-09-25 06:41] LABS: Allen's Test Patient Unable; Source Right Radial
--- NOTE | 2020-09-25 07:30 | PC.NURSE ---
Addendum entered by Susi Ozuna RN 09/25/20 11:04: Dr. Hein made aware and agrees to titrate Propofol and Fentanyl gtts for comfort AEB RASS and CPOT scores. Original Note: upon arrival to pt's room, pt is bucking the vent, alarms are constantly going off reading low PAW. His eyes are open, arms are flailing and he does not appear to be comfortable. Fentanyl gtt currently @ 100mcg/hr and Propofol gtt @ 50mcg/kg/min. RASS score +2. Titrated Propofol to 60mcg/kg/min per Propofol gtt protocol/scale in drip book. At 0800, pt continues to be a RASS score of +1 and vent alarms still going off. Titrated Propofol to 65mcg/kg/min. At 0830, pt continues to be agitated and restless with RASS score of +1. Titrated Propofol to 70mcg/kg/min. At 0900, pt is more comfortable, vent is no longer alarming and RASS score is -3. Will continue current settings.
--- NOTE | 2020-09-25 08:00 | PC.NURSE ---
gastric residual 0mL
--- NOTE | 2020-09-25 08:15 | PC.NURSE ---
CPOT 02/12. Fentanyl bolus of 12.5mcg given @ 0800. SBP 150s. SBP 130s @ 0815 130s. Pt appears more comfortable but vent still alarming low PAW. Abd breathing noted. Notified Dr. Chacon of last nights events and how pt is doing now.
--- NOTE | 2020-09-25 08:26 | PC.NURSE ---
Dr. Hein @ [facility]. Ordered to stop Heparin gtt. Order faxed to pharmacy.
--- NOTE | 2020-09-25 08:30 | HMH.ACPN2 ---
Internal Medicine - PN: Subj *Date: 09/25/20 *Time: 08:30 Interval history: He had uneventful night last night. He developed a right pneumothorax after deep line placement. Dr. Diaz placed a chest tube and follow-up chest x-ray showed resolution of the pneumothorax. About 4 AM this morning the pressure alarm went off and his sats dropped into the 70s. Rapid response was called. After assessment, the ER physician felt the etiology was dyssynchronous ventilation and after receiving a bolus of fentanyl, he did improve. He did require an additional dose of fentanyl for increased agitation later. At the present time, his sats are in the mid 80s. PEEP is up to 12. He is breathing 30 times a minute. He is on 100% FiO2. Exam Vital signs and Labs for Last 24 Hours: Temp Pulse Resp BP Pulse Ox 98.5 F 51 L 20 102/49 L 100 09/25/20 10:00 09/25/20 10:00 09/25/20 10:00 09/25/20 10:00 09/25/20 10:05 Laboratory Results - last 24 hr 09/24/20 11:19: Specimen Source Right radial, O2 % 100, ABG pH 7.27 L, ABG pCO2 40.2, ABG pO2 93.7, ABG HCO3 18.1 L, ABG Total CO2 19.4 L, ABG O2 Saturation 96, ABG Base Excess -8.7 L, Shahram Test Patient unable, Vent Rate 24, Tidal Volume 440, PEEP 10 09/24/20 11:30: Urine Color Yellow, Urine Appearance Cloudy, Urine pH 6.5, Ur Specific [place] 1.020, Urine Protein 1+, Urine Glucose (UA) Negative, Urine Ketones 2+, Urine Blood 3+, Urine Nitrate Negative, Urine Bilirubin Negative, Urine Urobilinogen 0.2, Ur Leukocyte Esterase Negative, Urine RBC Tntc, Urine WBC 3-5, Ur Squamous Epith Cells 3-5, Amorphous Sediment Trace, Urine Bacteria None 09/24/20 14:00: Specimen Source Right radial, O2 % 100, ABG pH 7.36, ABG pCO2 36.2, ABG pO2 67.6 L, ABG HCO3 20.1 L, ABG Total CO2 21.2 L, ABG O2 Saturation 92, ABG Base Excess -5.3 L, Shahram Test Patient unable, Vent Rate 24, Tidal Volume 440, PEEP 10 09/24/20 14:20: Lactate 1.5 09/24/20 15:10: Vancomycin Trough 6.1 09/25/20 03:35: WBC 16.1 H D, RBC 4.61, Hgb 13.4 L, Hct 41.4 L, MCV 89.8, MCH 29.1, MCHC 32.4, RDW 14.3, Plt Count 172, MPV 8.8, Neut % (Auto) 91.5 H, Lymph % (Auto) 4.8 L, [place] % (Auto) 2.8, Eos % (Auto) 0.1, Baso % (Auto) 0.4, Neut # (Auto) 14.7 H, Lymph # (Auto) 0.8, [place] # (Auto) 0.4, Eos # (Auto) 0.0, Baso # (Auto) 0.1, Total Counted 100, Neutrophils % (Manual) 92 H, Band Neutrophils % 5.0, Lymphocytes % (Manual) 3 L, Platelet Estimate Normal, RBC Morphology Normal 09/25/20 03:35: Sodium 137, Potassium 4.3, Chloride 109 H, Carbon Dioxide 24, Anion Gap 8.3, BUN 26 H, Creatinine 0.70, Estimated Creat Clear 69, Estimated GFR 110, Est GFR ( Amer) 133, Glucose 153 H D, Calcium 8.1 L 09/25/20 03:35: PT 15.3 H, INR 1.42 H, APTT 275.0 H* 09/25/20 04:01: POC Glucose 144 H 09/25/20 06:00: Specimen Source Right radial, O2 % 100%, ABG pH 7.37, ABG pCO2 36.0, ABG pO2 87.7, ABG HCO3 20.5 L, ABG Total CO2 21.6 L, ABG Base Excess -4.7 L, Shahram Test Patient unable, Vent Rate 24, Tidal Volume 440, PEEP 12 09/25/20 09:30: PT 13.3 H, INR 1.22 H, APTT 47.9 H D I & O for Last 24 hours: Intake & Output 09/22/20 09/23/20 09/24/20 09/25/20 11:59 11:59 11:59 11:59 Intake Total 960 / 960 2537 / 2537 1833 / 1833 1652 / 1652 Output Total 2700 / 2700 1550 / 1550 2850 / 2850 1130 / 1130 Balance -1740 / -1740 987 / 987 -1017 / -1017 522 / 522 Weight 160 lb 168 lb 6 oz 167 lb 5 oz Microbiology Reports for the Last 24 Hours: Microbiology 09/23/20 21:00 Sputum - Expectorated Sputum Gram Stain - Final 09/23/20 21:00 Sputum - Expectorated Sputum Sputum Culture - Preliminary Gram Negative Rods 09/24/20 10:50 Lung,Right Lower Lobe Gram Stain - Final Narrative: He is still somewhat agitated. Color is good. Breath sounds are equal bilaterally but diminished in the bases with bibasilar rales. No wheezes. Heart is regular. Abdomen is soft and nondistended. Bowel sounds diminished. Extremities show no edema. Assessment and Plan
--- NOTE | 2020-09-25 08:59 | PC.NURSE ---
Spoke to Dr. Chacon. He ordered the following: discontinue Cefepime, start Meropenem 1g Q8hrs, start Levaquin 750mg Q24hrs, and 2 sets of blood cultures (1 from peripheral and 1 from deep line). All orders read back and verified. Med orders faxed to pharmacy. Entered order for blood cultures.
--- NOTE | 2020-09-25 09:51 | HMH.GSPN ---
Subjective Narrative: Pt remains intubated, mechanically ventilated, and sedated. Events noted. Still on Levophed. Progress Note: A&P (1) Pneumonia due to COVID-19 virus Status: Acute (2) Acute hypoxemic respiratory failure due to COVID-19 Status: Acute (3) Hypertension Status: Chronic (4) Elevated liver function tests Status: Acute (5) Hypokalemia Status: Acute (6) PAF (paroxysmal atrial fibrillation) Status: Acute (7) Hyperlipidemia Status: Acute Assessment and Plan for All Diagnoses:: Chest x-ray this morning reveals no evidence of pneumothorax with chest tubes and lines in good position. However, patient remains on high ventilator settings with PEEP of 12. Continue chest tube to suction for today. If no evidence of air leak tomorrow may be able to place to waterseal. Exam Vital signs and Labs for Last 24 Hours: Temp Pulse Resp BP Pulse Ox 98.9 F 58 L 17 103/49 L 95 09/25/20 09:00 09/25/20 09:00 09/25/20 09:00 09/25/20 09:00 09/25/20 09:00 Laboratory Results - last 24 hr 09/24/20 11:19: Specimen Source Right radial, O2 % 100, ABG pH 7.27 L, ABG pCO2 40.2, ABG pO2 93.7, ABG HCO3 18.1 L, ABG Total CO2 19.4 L, ABG O2 Saturation 96, ABG Base Excess -8.7 L, Shahram Test Patient unable, Vent Rate 24, Tidal Volume 440, PEEP 10 09/24/20 11:30: Urine Color Yellow, Urine Appearance Cloudy, Urine pH 6.5, Ur Specific [place] 1.020, Urine Protein 1+, Urine Glucose (UA) Negative, Urine Ketones 2+, Urine Blood 3+, Urine Nitrate Negative, Urine Bilirubin Negative, Urine Urobilinogen 0.2, Ur Leukocyte Esterase Negative, Urine RBC Tntc, Urine WBC 3-5, Ur Squamous Epith Cells 3-5, Amorphous Sediment Trace, Urine Bacteria None 09/24/20 14:00: Specimen Source Right radial, O2 % 100, ABG pH 7.36, ABG pCO2 36.2, ABG pO2 67.6 L, ABG HCO3 20.1 L, ABG Total CO2 21.2 L, ABG O2 Saturation 92, ABG Base Excess -5.3 L, Shahram Test Patient unable, Vent Rate 24, Tidal Volume 440, PEEP 10 09/24/20 14:20: Lactate 1.5 09/24/20 15:10: Vancomycin Trough 6.1 09/25/20 03:35: WBC 16.1 H D, RBC 4.61, Hgb 13.4 L, Hct 41.4 L, MCV 89.8, MCH 29.1, MCHC 32.4, RDW 14.3, Plt Count 172, MPV 8.8, Neut % (Auto) 91.5 H, Lymph % (Auto) 4.8 L, [place] % (Auto) 2.8, Eos % (Auto) 0.1, Baso % (Auto) 0.4, Neut # (Auto) 14.7 H, Lymph # (Auto) 0.8, [place] # (Auto) 0.4, Eos # (Auto) 0.0, Baso # (Auto) 0.1, Total Counted 100, Neutrophils % (Manual) 92 H, Band Neutrophils % 5.0, Lymphocytes % (Manual) 3 L, Platelet Estimate Normal, RBC Morphology Normal 09/25/20 03:35: Sodium 137, Potassium 4.3, Chloride 109 H, Carbon Dioxide 24, Anion Gap 8.3, BUN 26 H, Creatinine 0.70, Estimated Creat Clear 69, Estimated GFR 110, Est GFR ( Amer) 133, Glucose 153 H D, Calcium 8.1 L 09/25/20 03:35: PT 15.3 H, INR 1.42 H, APTT 275.0 H* 09/25/20 04:01: POC Glucose 144 H 09/25/20 06:00: Specimen Source Right radial, O2 % 100%, ABG pH 7.37, ABG pCO2 36.0, ABG pO2 87.7, ABG HCO3 20.5 L, ABG Total CO2 21.6 L, ABG Base Excess -4.7 L, Shahram Test Patient unable, Vent Rate 24, Tidal Volume 440, PEEP 12 I & O for Last 24 hours: Intake & Output 09/22/20 09/23/20 09/24/20 09/25/20 11:59 11:59 11:59 11:59 Intake Total 960 / 960 2537 / 2537 1833 / 1833 1652 / 1652 Output Total 2700 / 2700 1550 / 1550 2850 / 2850 1115 / 1115 Balance -1740 / -1740 987 / 987 -1017 / -1017 537 / 537 Weight 160 lb 168 lb 6 oz 167 lb 5 oz Microbiology Reports for the Last 24 Hours: Microbiology 09/23/20 21:00 Sputum - Expectorated Sputum Gram Stain - Final 09/23/20 21:00 Sputum - Expectorated Sputum Sputum Culture - Preliminary Gram Negative Rods 09/24/20 10:50 Lung,Right Lower Lobe Gram Stain - Final Narrative: Intubated, sedated.
[2020-09-25 09:55] LABS: INR 1.22 (0.9-1.1); Prothrombin Time 13.3 seconds (9.4-11.8)
[2020-09-25 09:56] LABS: Activated Partial Thrombo Time 47.9 seconds (23.6-34.0)
--- NOTE | 2020-09-25 10:11 | PC.NURSE ---
SBP 98. Propofol gtt decreased to 65mcg/kg/min. HR in the 50s. Fentanyl gtt currently @ 100mcg/hr. Pt appears much more comfortable than this morning. RASS is -3 and CPOT is now 0. Levo gtt is @ 5mcg/min.
--- NOTE | 2020-09-25 10:51 | PC.NURSE ---
Pt bucking the vent and sats are now low 80s. CPOT 3. Gave bolus of Fentanyl 12.5mcg
--- NOTE | 2020-09-25 11:07 | PC.NURSE ---
CPOT 0. Sat high 80s. Pt appears comfortable.
--- NOTE | 2020-09-25 12:00 | PC.NURSE ---
gastric residual 0mL @ 12pm
--- NOTE | 2020-09-25 12:55 | PC.NURSE ---
charted on wrong patient
--- NOTE | 2020-09-25 16:00 | PC.NURSE ---
gastric residual 0mL. Tubefeed increased to 40mL/hr
[2020-09-25 16:47] LABS: Vancomycin,Trough 19.1 ug/mL (5.0-10.0)
--- NOTE | 2020-09-25 17:21 | PC.NURSE ---
paged oncall pharmacist regarding Vanc trough of 19.1. Jenna Genao called back and ordered to HOLD dose until 2100 tonight and then give it. Then order it as Q12hrs. Order faxed to [place] pharmacy.
--- NOTE | 2020-09-25 17:47 | PC.NURSE ---
Sinus tammie. RASS -4. Decreased Propofol to 60mcg/kg/min.
--- NOTE | 2020-09-25 22:19 | PC.NURSE ---
1999 patient breathing 30 bpm with grimace on face. fentanyl drip increased up to 125 mcq
--- NOTE | 2020-09-25 22:20 | PC.NURSE ---
2100 levo drip decreased sbp running 120s 130s. levo now infusing at 4 mcq/min
--- NOTE | 2020-09-25 22:21 | PC.NURSE ---
2129 while moving patient bed, patient awakened, followed commands. fentanyl drip increased to 150 mcq
--- NOTE | 2020-09-25 23:50 | PC.NURSE ---
2300 levo titrated down to 3 mcq sbp greater than 100.
[2020-09-26] VITALS (73 sets, daily range): BP systolic 86–126; BP diastolic 41–55; PULSE 45–67; RESP 25–28; TEMP 36.4–37; O2SAT 88–98; BMI 24.7
[2020-09-26 05:17] LABS: Basophils % 0.2 % (0.1-2.0); Hematocrit 36.8 % (42.0-52.0); Hemoglobin 12.1 g/dL (14.1-18.0); Lymphocytes # 0.5 K/mm3 (0.7-4.5); Lymphocytes % 4.3 % (10-50); Mean Corpuscular HGB Conc 32.8 g/dL (31.8-35.4); Mean Corpuscular Hemoglobin 29.9 pg (27.0-31.2); Mean Corpuscular Volume 91.4 fl (80-94); Mean Platelet Volume 8.6 fl (7.4-10.4); Monocytes # 0.3 K/mm3 (0.1-1.0); Monocytes % 2.7 % (1.7-9.3); Neutrophils # 10.4 K/mm3 (1.8-7.8); Neutrophils % 92.9 % (37.0-80.0); Platelet Count 163 K/mm3 (142-424); Red Blood Count 4.03 M/mm3 (4.60-6.20); Red Cell Distribution Width 14.3 % (11.5-17.5); White Blood Count 11.2 K/mm3 (4.8-10.8)
[2020-09-26 05:18] LABS: MANUAL DIFFERENTIAL MANUAL DIFFERENTIAL (MANUAL DIFF)
[2020-09-26 05:26] LABS: Chloride 110 mmol/L (98-107); Potassium 4.5 mmoL/L (3.5-5.1); Sodium 139 mmol/L (136-145)
[2020-09-26 05:29] LABS: Anion Gap 7.5 mEq/L (5-15); Blood Urea Nitrogen 23 mg/dl (9-20); Carbon Dioxide 26 mmol/L (22.0-30.0); Creatinine Clearance Estimated 68 mL/min (50-200); Estimated Glomerular Filt Rate 110 ml/min (>60); GFR (African American) 133 ML/MIN (>60)
[2020-09-26 05:30] LABS: Glucose 159 mg/dl (74-100)
[2020-09-26 05:39] LABS: Lymphocytes % 4 % (10-50); Monocytes % 2 % (2-9); Neutrophils % 84 % (42-76); Total Cells Counted 100
[2020-09-26 05:40] LABS: Platelet Estimate Normal; RBC Morphology Normal
--- NOTE | 2020-09-26 06:00 | XR_ITS ---
PROCEDURE: XR CHEST PORTABLE CLINICAL HISTORY: intubated Follow-up tubes and lines, respiratory failure COMPARISON: CT CT ANGIO CHEST from 09/21/2020 CR XR CHEST PORTABLE from 09/24/2020 CR XR CHEST PORTABLE from 09/24/2020 CR XR CHEST PORTABLE from 09/25/2020 FINDINGS: The cardiomediastinal silhouette and pulmonary vascularity are within normal limits. Endotracheal tube, nasogastric tube, right subclavian central venous line, and chest tube remain in good position. No evidence of pneumothorax. There is bilateral pneumonia which appears slightly worse in the right lung base. IMPRESSION: Tubes and lines are in good position. No evidence of pneumothorax. Continued bilateral pneumonia slightly worse in the right lung base Dictated by: Shahram Aguilar MD 09/26/2020 08:13 Shahram Aguilar MD in [facility] 09/26/2020 08:13
--- NOTE | 2020-09-26 06:11 | PC.NURSE ---
patietn has tolerated the vent throughout the shift. o2 sats has sustained greater than 88% most often 93-94%. patient breath sounds diminished throughout all mendoza, more so on the right side than left. ct patent and intact, ss drainage. luna draining yellow urine with small amount of sediment. tolerating tube feedings at 50 ml/hr. cardiac specialist has shown sb throughout the shift. able to sit patient up for chest xray without patient bucking ventilator. fentanyl at 15 mcq, propfol at 6o mcq and levo at 3 mcq.
--- NOTE | 2020-09-26 06:47 | PC.NURSE ---
episode of tube feeding draining from mouth the last hour. placement confirmed with auscultation, unable to feel tube coiled in mouth or throat. 5ml residual noted. tube feeding stopped until placement confirmed with physician.
--- NOTE | 2020-09-26 07:00 | PC.NURSE ---
pt was bathed and sheets were changed with 6 staff in the room. Pt tolerated turning well.
[2020-09-26 07:07] LABS: ABG Base Excess -2.5 mmol/L (-2.4-2.3); ABG HCO3 23.4 mmhg (22.0-26.0); ABG Oxygen Saturation 96 % (90-100); ABG PH 7.33 mmol/L (7.35-7.45); ABG TCO2 24.8 mmhg (23-27)
[2020-09-26 07:10] LABS: Allen's Test Patient Unable; Oxygen 100 %; PEEP 12; Source Right Radial; Tidal Volume 440; Vent Rate 24
--- NOTE | 2020-09-26 08:00 | PC.NURSE ---
Gastric residual 0mL
--- NOTE | 2020-09-26 08:36 | PC.NURSE ---
Dr. Hein @ [facility]. Confirms that OG is in the correct place. Ordered to restart tubefeeds and advance slowly. OG is currently 55 @ the lip.
--- NOTE | 2020-09-26 08:51 | PC.NURSE ---
called son (Fred) and updated him. Will call him again this afternoon with an update.
--- NOTE | 2020-09-26 08:56 | HMH.ACPN2 ---
Internal Medicine - PN: Subj *Date: 09/26/20 *Time: 08:56 Interval history: Fairly uneventful night. He is tolerating the vent. RASS is -3. He was noted to have some tube feeding apparently pooling in his mouth this morning and feedings have been stopped pending results of his x-ray. Levophed drip has been weaned to 3. Propofol has been weaned to 60 and fentanyl is at 150 Exam Vital signs and Labs for Last 24 Hours: Temp Pulse Resp BP Pulse Ox 98.2 F 54 L 28 H 101/47 L 96 09/26/20 08:49 09/26/20 08:49 09/26/20 08:49 09/26/20 08:49 09/26/20 08:49 Laboratory Results - last 24 hr 09/25/20 09:30: PT 13.3 H, INR 1.22 H, APTT 47.9 H D 09/25/20 16:00: Vancomycin Trough 19.1 H 09/26/20 04:30: WBC 11.2 H D, RBC 4.03 L, Hgb 12.1 L, Hct 36.8 L, MCV 91.4, MCH 29.9, MCHC 32.8, RDW 14.3, Plt Count 163, MPV 8.6, Neut % (Auto) 92.9 H, Lymph % (Auto) 4.3 L, [place] % (Auto) 2.7, Eos % (Auto) 0.0 L, Baso % (Auto) 0.2, Neut # (Auto) 10.4 H, Lymph # (Auto) 0.5 L, [place] # (Auto) 0.3, Eos # (Auto) 0.0, Baso # (Auto) 0.0, Total Counted 100, Neutrophils % (Manual) 84 H, Band Neutrophils % 10.0 H, Lymphocytes % (Manual) 4 L, Monocytes % (Manual) 2, Platelet Estimate Normal, RBC Morphology Normal 09/26/20 04:30: Sodium 139, Potassium 4.5, Chloride 110 H, Carbon Dioxide 26, Anion Gap 7.5, BUN 23 H, Creatinine 0.70, Estimated Creat Clear 68, Estimated GFR 110, Est GFR ( Amer) 133, Glucose 159 H, Calcium 8.0 L 09/26/20 06:45: Specimen Source Right radial, O2 % 100, ABG pH 7.33 L, ABG pCO2 45.0, ABG pO2 85.0, ABG HCO3 23.4, ABG Total CO2 24.8, ABG O2 Saturation 96, ABG Base Excess -2.5 L, Shahram Test Patient unable, Vent Rate 24, Tidal Volume 440, PEEP 12 I & O for Last 24 hours: Intake & Output 09/23/20 09/24/20 09/25/20 09/26/20 11:59 11:59 11:59 11:59 Intake Total 2537 / 2537 1833 / 1833 1652 / 1772 3182.349 / 3182.349 Output Total 1550 / 1550 2850 / 2850 1160 / 1210 1345 / 1345 Balance 987 / 987 -1017 / -1017 492 / 562 1837.349 / 1837.349 Weight 168 lb 6 oz 167 lb 5 oz 167 lb Microbiology Reports for the Last 24 Hours: Microbiology 09/23/20 21:00 Sputum - Expectorated Sputum Gram Stain - Final 09/23/20 21:00 Sputum - Expectorated Sputum Sputum Culture - Preliminary Stenotrophomonas maltophilia Narrative: Systolic blood pressure consistently greater than 100 with Levophed currently at 3. Monitor shows sinus bradycardia in the 50s. No episodes of A. fib. Breath sounds are more diminished in the bases. Heart is regular. Abdomen is soft and nondistended. Bowel sounds are diminished. Extremities show no edema. ABGs are stable. Chest x-ray by my review shows feeding tube in good position. Sputum culture is growing Stenotrophomonas sensitive to Levaquin Assessment and Plan (1) Pneumonia due to COVID-19 virus Status: Acute Category: Medical Code(s): U07.1 - COVID-19; J12.89 - Other viral pneumonia (2) Acute hypoxemic respiratory failure due to COVID-19 Status: Acute Category: Medical Code(s): U07.1 - COVID-19; J96.01 - Acute respiratory failure with hypoxia (3) Hypertension Status: Chronic Category: Medical Code(s): I10 - Essential (primary) hypertension (4) Elevated liver function tests Status: Acute Category: Medical Code(s): R79.89 - Other specified abnormal findings of blood chemistry (5) Hypokalemia Status: Acute Category: Medical Code(s): E87.6 - Hypokalemia (6) PAF (paroxysmal atrial fibrillation) Status: Acute Category: Medical Code(s): I48.0 - Paroxysmal atrial fibrillation (7) Hyperlipidemia Status: Acute Category: Medical Code(s): E78.5 - Hyperlipidemia, unspecified - Assessment and plan all Dx Assessment and Plan for all problems:: Condition remains stable but guarded. Will resume tube feedings slowly and titrate as tolerated. Continue ventilatory support and current antibiotic regimen.
--- NOTE | 2020-09-26 09:08 | PC.NURSE ---
Dr. Diaz @ [facility] and put right chest tube to water seal.
--- NOTE | 2020-09-26 09:09 | HMH.PHACONS ---
- Pharmacy Consult Date: 09/26/20 Time: 09:10 Referring provider: DR. OSWALD Reason for Consult:: VANCOMYCIN TROUGH AND DOSE CHANGE Allergies and ADEs:: Allergies Allergy/AdvReac Type Severity Reaction Status Date / Time No Known Allergies Allergy Verified 09/20/20 10:35 Home Medications:: Home Medications Medication Instructions Recorded Confirmed Type Simvastatin 40 mg PO HS 09/20/20 09/21/20 History hydroCHLOROthiazide 12.5 mg PO DAILY 09/20/20 09/20/20 History [Hydrochlorothiazide 12.5mg Tab] Levothyroxine Sodium 88 mcg PO DAILY 09/21/20 09/21/20 History [Levothyroxine 88mcg (0.088mg) Tab] Height: 1.75 m Weight: 75.75 kg Laboratory Results:: Laboratory Results - last 24 hr 09/25/20 09:30: PT 13.3 H, INR 1.22 H, APTT 47.9 H D 09/25/20 16:00: Vancomycin Trough 19.1 H 09/26/20 04:30: WBC 11.2 H D, RBC 4.03 L, Hgb 12.1 L, Hct 36.8 L, MCV 91.4, MCH 29.9, MCHC 32.8, RDW 14.3, Plt Count 163, MPV 8.6, Neut % (Auto) 92.9 H, Lymph % (Auto) 4.3 L, [place] % (Auto) 2.7, Eos % (Auto) 0.0 L, Baso % (Auto) 0.2, Neut # (Auto) 10.4 H, Lymph # (Auto) 0.5 L, [place] # (Auto) 0.3, Eos # (Auto) 0.0, Baso # (Auto) 0.0, Total Counted 100, Neutrophils % (Manual) 84 H, Band Neutrophils % 10.0 H, Lymphocytes % (Manual) 4 L, Monocytes % (Manual) 2, Platelet Estimate Normal, RBC Morphology Normal 09/26/20 04:30: Sodium 139, Potassium 4.5, Chloride 110 H, Carbon Dioxide 26, Anion Gap 7.5, BUN 23 H, Creatinine 0.70, Estimated Creat Clear 68, Estimated GFR 110, Est GFR ( Amer) 133, Glucose 159 H, Calcium 8.0 L 09/26/20 06:45: Specimen Source Right radial, O2 % 100, ABG pH 7.33 L, ABG pCO2 45.0, ABG pO2 85.0, ABG HCO3 23.4, ABG Total CO2 24.8, ABG O2 Saturation 96, ABG Base Excess -2.5 L, Shahram Test Patient unable, Vent Rate 24, Tidal Volume 440, PEEP 12 Medical History: Reports:: Hyperlipidemia, Hypertension Denies:: Chronic Obstructive Pulmonary Disease (COPD), Depression, Diabetes Mellitus Type 2 Assessment and Plan (1) Pneumonia due to COVID-19 virus Status: Acute Category: Medical Code(s): U07.1 - COVID-19; J12.89 - Other viral pneumonia (2) Acute hypoxemic respiratory failure due to COVID-19 Status: Acute Category: Medical Code(s): U07.1 - COVID-19; J96.01 - Acute respiratory failure with hypoxia (3) Hypertension Status: Chronic Category: Medical Code(s): I10 - Essential (primary) hypertension (4) Elevated liver function tests Status: Acute Category: Medical Code(s): R79.89 - Other specified abnormal findings of blood chemistry (5) Hypokalemia Status: Acute Category: Medical Code(s): E87.6 - Hypokalemia (6) PAF (paroxysmal atrial fibrillation) Status: Acute Category: Medical Code(s): I48.0 - Paroxysmal atrial fibrillation (7) Hyperlipidemia Status: Acute Category: Medical Code(s): E78.5 - Hyperlipidemia, unspecified - Assessment and plan all Dx Assessment and Plan for all problems:: PATIENT'S VANCOMYCIN TROUGH LEVEL WAS 19.1 MCG/ML YESTERDAY AFTERNOON PRIOR TO 4TH DOSE AT VANCOMYCIN 1500 MG Q8H. HAD NURSE HOLD DOSE UNTIL 2100 AND RESTART AT Q12H. ADJUSTED DOSE TO VANCOMYCIN 1250 MG Q8H TO START AT 1700 TODAY. PHARMACY WILL FOLLOW DAILY AND ADJUST APPROPRIATE.
--- NOTE | 2020-09-26 09:20 | P.PN_ITS ---
Subjective Narrative: Remains intubated and sedated. Progress Note: A&P (1) Pneumonia due to COVID-19 virus Status: Acute (2) Acute hypoxemic respiratory failure due to COVID-19 Status: Acute (3) Hypertension Status: Chronic (4) Elevated liver function tests Status: Acute (5) Hypokalemia Status: Acute (6) PAF (paroxysmal atrial fibrillation) Status: Acute (7) Hyperlipidemia Status: Acute Assessment and Plan for All Diagnoses:: CXR reveals good position of chest tube with no PTX. No air leak. Will place on water seal. Exam Vital signs and Labs for Last 24 Hours: Temp Pulse Resp BP Pulse Ox 98.2 F 54 L 28 H 101/47 L 96 09/26/20 08:49 09/26/20 08:49 09/26/20 08:49 09/26/20 08:49 09/26/20 08:49 Laboratory Results - last 24 hr 09/25/20 09:30: PT 13.3 H, INR 1.22 H, APTT 47.9 H D 09/25/20 16:00: Vancomycin Trough 19.1 H 09/26/20 04:30: WBC 11.2 H D, RBC 4.03 L, Hgb 12.1 L, Hct 36.8 L, MCV 91.4, MCH 29.9, MCHC 32.8, RDW 14.3, Plt Count 163, MPV 8.6, Neut % (Auto) 92.9 H, Lymph % (Auto) 4.3 L, [place] % (Auto) 2.7, Eos % (Auto) 0.0 L, Baso % (Auto) 0.2, Neut # (Auto) 10.4 H, Lymph # (Auto) 0.5 L, [place] # (Auto) 0.3, Eos # (Auto) 0.0, Baso # (Auto) 0.0, Total Counted 100, Neutrophils % (Manual) 84 H, Band Neutrophils % 1 0.0 H, Lymphocytes % (Manual) 4 L, Monocytes % (Manual) 2, Platelet Estimate Normal, RBC Morphology Normal 09/26/20 04:30: Sodium 139, Potassium 4.5, Chloride 110 H, Carbon Dioxide 26, Anion Gap 7.5, BUN 23 H, Creatinine 0.70, Estimated Creat Clear 68, Estimated GFR 110, Est GFR ( Amer) 133, Glucose 159 H, Calcium 8.0 L 09/26/20 06:45: Specimen Source Right radial, O2 % 100, ABG pH 7.33 L, ABG pCO2 45.0, ABG pO2 85.0, ABG HCO3 23.4, ABG Total CO2 24.8, ABG O2 Saturation 96, ABG Base Excess -2.5 L, Shahram Test Patient unable, Vent Rate 24, Tidal Volume 440, PEEP 12 I & O for Last 24 hours: Intake & Output 09/23/20 09/24/20 09/25/20 09/26/20 11:59 11:59 11:59 11:59 Intake Total 2537 / 2537 1833 / 1833 1652 / 1772 3302.349 / 3302.349 Output Total 1550 / 1550 2850 / 2850 1160 / 1210 1345 / 1345 Balance 987 / 987 -1017 / -1017 492 / 562 1957.349 / 1957.349 Weight 168 lb 6 oz 167 lb 5 oz 167 lb Microbiology Reports for the Last 24 Hours: Microbiology 09/23/20 21:00 Sputum - Expectorated Sputum Gram Stain - Final 09/23/20 21:00 Sputum - Expectorated Sputum Sputum Culture - Preliminary Stenotrophomonas maltophilia Narrative: Sedated and mechanically ventilated.
--- NOTE | 2020-09-26 09:23 | PC.NURSE ---
tubefeeds (Pulmocare) restarted via OG tube @ 20mL/hr.
--- NOTE | 2020-09-26 12:00 | PC.NURSE ---
gastric residuals 0mL
--- NOTE | 2020-09-26 13:30 | PC.NURSE ---
tubefeed rate increased to 30mL/hr
--- NOTE | 2020-09-26 14:00 | PC.NURSE ---
BP 110/53. BP has remained above 100 entire shift. Levophed gtt turned OFF at this time.
--- NOTE | 2020-09-26 14:24 | PC.NURSE ---
BP 86/44. Levo gtt turned back on @ 3mcg/min.
--- NOTE | 2020-09-26 16:00 | PC.NURSE ---
gastric residual 0mL. RASS -4. Decreased Propofol gtt to 55mcg/kg/min. Fentanyl gtt continues # 150mcg/hr.
--- NOTE | 2020-09-26 17:30 | PC.NURSE ---
tubefeed rate increased to 40mL/hr. Tolerating feeds well.
--- NOTE | 2020-09-26 17:45 | PC.NURSE ---
called son (Fred) and updated him.
--- NOTE | 2020-09-26 17:53 | PC.NURSE ---
shift note: pt has been stable this shift. Attempted to wean Levophed but SBP dropped to 88. Have been able to wean Propofol to 55mcg/kg/min. RASS -3 to -4. CPOT has been 0 all day. Fentanyl gtt continues @ 150mcg/hr. Chest tube now to water seal. No bubbling noted. 43mL output from chest tube this shift. UOP adequate and clear yellow. Tubefeeds have been restarted and currently going @ 40mL/hr. Gastric residuals have been 0mL. Family has been udpated twice today.
[2020-09-27] VITALS (106 sets, daily range): BP systolic 101–141; BP diastolic 38–66; PULSE 15–62; RESP 14–31; TEMP 36.2–37.4; O2SAT 91–98; BMI 24.7
--- NOTE | 2020-09-27 02:15 | PC.NURSE ---
2300 levophed titrated down to 2 mcq, systolic remaining greater than 100. urine output has decreased as the blood pressure decreased.
--- NOTE | 2020-09-27 03:19 | PC.NURSE ---
levophed drip increased back to 3 mcq, map has been running 65 or below for the last hour.
[2020-09-27 05:00] LABS: Basophils % 0.2 % (0.1-2.0); Eosinophils % 0.2 % (0.1-12.0); Hematocrit 37.2 % (42.0-52.0); Lymphocytes # 0.5 K/mm3 (0.7-4.5); Lymphocytes % 4.5 % (10-50); Mean Corpuscular HGB Conc 32.3 g/dL (31.8-35.4); Mean Corpuscular Hemoglobin 30.2 pg (27.0-31.2); Mean Corpuscular Volume 93.3 fl (80-94); Monocytes # 0.3 K/mm3 (0.1-1.0); Monocytes % 2.9 % (1.7-9.3); Neutrophils # 10.5 K/mm3 (1.8-7.8); Neutrophils % 92.3 % (37.0-80.0); Platelet Count 182 K/mm3 (142-424); Red Blood Count 3.99 M/mm3 (4.60-6.20); Red Cell Distribution Width 14.3 % (11.5-17.5); White Blood Count 11.4 K/mm3 (4.8-10.8)
[2020-09-27 05:01] LABS: MANUAL DIFFERENTIAL MANUAL DIFFERENTIAL (MANUAL DIFF)
[2020-09-27 05:06] LABS: Chloride 110 mmol/L (98-107); Potassium 4.8 mmoL/L (3.5-5.1); Sodium 140 mmol/L (136-145)
[2020-09-27 05:09] LABS: Anion Gap 5.8 mEq/L (5-15); Blood Urea Nitrogen 26 mg/dl (9-20); Carbon Dioxide 29 mmol/L (22.0-30.0); Creatinine Clearance Estimated 69 mL/min (50-200); Estimated Glomerular Filt Rate 110 ml/min (>60); GFR (African American) 133 ML/MIN (>60)
[2020-09-27 05:10] LABS: Calcium 8.1 mg/dl (8.4-10.2)
[2020-09-27 05:12] LABS: Glucose 201 mg/dl (74-100)
[2020-09-27 05:14] LABS: Lymphocytes % 3 % (10-50); Neutrophils % 89 % (42-76); Platelet Estimate Normal; RBC Morphology Normal; Total Cells Counted 100
--- NOTE | 2020-09-27 05:44 | PC.NURSE ---
shift summary, uneventful shift. patient remained on 100% fio2 per dr. watkins with sats 94-98%, breath sound much more diminished throughout all mendoza than previous night. ct patent to water seal. pulmocare increased to goal rate of 60ml/hr with issues. residuals remain 5 ml q 4 hrs. board mill supervisor has shown sb in the 40-50. patient with rass of -4 and cpot of 0. able to turn patient, perform oral care and deep suction without patient fighting the ventilator. levophed is at 2.5 mcq, propfol at 55 mcq and fentanyl at 150 mcq. luna draining clear yellow urine.
--- NOTE | 2020-09-27 06:00 | XR_ITS ---
PROCEDURE: XR CHEST PORTABLE CLINICAL HISTORY: intubated Respiratory failure, follow-up pneumothorax COMPARISON: CT CT ANGIO CHEST from 09/21/2020 CR XR CHEST PORTABLE from 09/24/2020 CR XR CHEST PORTABLE from 09/25/2020 CR XR CHEST PORTABLE from 09/26/2020 FINDINGS: 5:51 a.m. The endotracheal tube is. The tip is at the T1-T2 level approximately 12 cm above the mazin. Nasogastric tube tip is not visible on the film but is below the GE junction. Right subclavian central venous line tip is in region the SVC. Right-sided chest tube is in good position. Persistent bilateral lower lobe pneumonia noted overall not significantly changed. IMPRESSION: 1. Endotracheal tube tip is high and should be advanced approximately 5 cm. 2. No other changes evident. No evidence of pneumothorax 3. Felipa the patient's nurse was notified of the above findings by telephone 09/27/2020 at 7:05 a.m. Dictated by: Shahram Aguilar MD 09/27/2020 07:13 Shahram Aguilar MD in [facility] 09/27/2020 07:13
[2020-09-27 06:44] LABS: ABG Base Excess -4.8 mmol/L (-2.4-2.3); ABG HCO3 21.6 mmhg (22.0-26.0); ABG Oxygen Saturation 98 % (90-100); ABG PCO2 44.5 mmhg (35.0-45.0); ABG PO2 117.4 mmhg (80-100); ABG TCO2 22.9 mmhg (23-27)
[2020-09-27 06:46] LABS: Allen's Test Patient Unable; Oxygen 100 %; PEEP 12; Source Left Radial; Tidal Volume 440; Vent Rate 24
--- NOTE | 2020-09-27 07:08 | PC.NURSE ---
Kaylie Cleary RN made FORGING PRESS OPERATOR aware that ETT needs to be advanced 5 cm. Will order CXR to confirm placement.
--- NOTE | 2020-09-27 07:29 | XR_ITS ---
PROCEDURE: XR CHEST PORTABLE CLINICAL HISTORY: ETT placement Follow-up ET tube positioning COMPARISON: CT CT ANGIO CHEST from 09/21/2020 CR XR CHEST PORTABLE from 09/25/2020 CR XR CHEST PORTABLE from 09/26/2020 CR XR CHEST PORTABLE from 09/27/2020 FINDINGS: The cardiomediastinal silhouette and pulmonary vascularity are within normal limits. Endotracheal tube has been in than stent is now in good position at the T4 level 5 cm above the mazin. Nasogastric tube, right subclavian central venous line, and right-sided chest tube are all in good position. No change bilateral pneumonia right worse than left. No evidence of pneumothorax. No acute bony abnormalities. IMPRESSION: Good position of endotracheal tube following repositioning as described above Dictated by: Shahram Aguilar MD 09/27/2020 07:56 Shahram Aguilar MD in [facility] 09/27/2020 07:56
--- NOTE | 2020-09-27 07:40 | PC.NURSE ---
0725 - ETT advanced by Bennie Arndt RRT @ this time. CXR obtained @ 0730 to confirm ETT placement.
--- NOTE | 2020-09-27 08:08 | HMH.ACPN2 ---
Internal Medicine - PN: Subj *Date: 09/27/20 *Time: 08:08 Interval history: Relatively uneventful night. Remains stable on current ventilator settings of 100% FiO2, tidal volume of 440, PEEP of 12. He continues on Levophed, propofol, and fentanyl. Exam Vital signs and Labs for Last 24 Hours: Temp Pulse Resp BP Pulse Ox 97.9 F 49 L 24 116/44 L 96 09/27/20 16:45 09/27/20 16:45 09/27/20 16:45 09/27/20 16:45 09/27/20 16:45 Laboratory Results - last 24 hr 09/23/20 17:20: MRSA (PCR) Negative 09/27/20 04:30: WBC 11.4 H, RBC 3.99 L, Hgb 12.0 L, Hct 37.2 L, MCV 93.3, MCH 30.2, MCHC 32.3, RDW 14.3, Plt Count 182, MPV 9.0, Neut % (Auto) 92.3 H, Lymph % (Auto) 4.5 L, [place] % (Auto) 2.9, Eos % (Auto) 0.2, Baso % (Auto) 0.2, Neut # (Auto) 10.5 H, Lymph # (Auto) 0.5 L, [place] # (Auto) 0.3, Eos # (Auto) 0.0, Baso # (Auto) 0.0, Total Counted 100, Neutrophils % (Manual) 89 H, Band Neutrophils % 8.0, Lymphocytes % (Manual) 3 L, Platelet Estimate Normal, RBC Morphology Normal 09/27/20 04:30: Sodium 140, Potassium 4.8, Chloride 110 H, Carbon Dioxide 29, Anion Gap 5.8, BUN 26 H, Creatinine 0.70, Estimated Creat Clear 69, Estimated GFR 110, Est GFR ( Amer) 133, Glucose 201 H D, Calcium 8.1 L 09/27/20 06:00: Specimen Source Left radial, O2 % 100, ABG pH 7.30 L, ABG pCO2 44.5, ABG pO2 117.4 H, ABG HCO3 21.6 L, ABG Total CO2 22.9 L, ABG O2 Saturation 98, ABG Base Excess -4.8 L, Shahram Test Patient unable, Vent Rate 24, Tidal Volume 440, PEEP 12 I & O for Last 24 hours: Intake & Output 09/25/20 09/26/20 09/27/20 09/28/20 11:59 11:59 11:59 11:59 Intake Total 1652 / 1772 3318.016 / 3318.016 3830.659 / 3929.659 1074.230 / 1074.230 Output Total 1160 / 1210 1395 / 1545 1468 / 1508 375 / 375 Balance 492 / 562 1923.016 / 3647.598 0006.659 / 2421.659 699.230 / 699.230 Weight 167 lb 5 oz 167 lb 167 lb 8.821 oz Microbiology Reports for the Last 24 Hours: Microbiology 09/25/20 09:30 Blood - Central Blood Culture - Preliminary NO GROWTH AFTER 48 HOURS 09/25/20 09:30 Blood Blood Culture - Preliminary NO GROWTH AFTER 48 HOURS 09/24/20 22:30 Anus CRE Surveillance Culture - Final Negative Narrative: He is unresponsive on the ventilator. Color is good. Chest reveals coarse rales in the bases. No wheezes. Heart is regular. Abdomen is soft and nondistended. Bowel sounds diminished. Extremities show trace ankle edema. Assessment and Plan (1) Pneumonia due to COVID-19 virus Status: Acute Category: Medical Code(s): U07.1 - COVID-19; J12.89 - Other viral pneumonia (2) Acute hypoxemic respiratory failure due to COVID-19 Status: Acute Category: Medical Code(s): U07.1 - COVID-19; J96.01 - Acute respiratory failure with hypoxia (3) Hypertension Status: Chronic Category: Medical Code(s): I10 - Essential (primary) hypertension (4) Elevated liver function tests Status: Acute Category: Medical Code(s): R79.89 - Other specified abnormal findings of blood chemistry (5) Hypokalemia Status: Acute Category: Medical Code(s): E87.6 - Hypokalemia (6) PAF (paroxysmal atrial fibrillation) Status: Acute Category: Medical Code(s): I48.0 - Paroxysmal atrial fibrillation (7) Hyperlipidemia Status: Acute Category: Medical Code(s): E78.5 - Hyperlipidemia, unspecified (8) Pneumothorax Status: Acute Category: Medical Code(s): J93.9 - Pneumothorax, unspecified - Assessment and plan all Dx Assessment and Plan for all problems:: Continue ventilatory support. Attempt to wean Levophed as tolerated. Wean ventilator as per Dr. Chacon's recommendations.
--- NOTE | 2020-09-27 08:30 | DIET.NUTRFU ---
Pt with good tolerance TF. Currently receiving additional ~600kcal from Propofol, recommend decreasing TF goal rate by 5ml/hr. New order reads: Pulmocare 1.5 at 55ml/hr with minimal water flushes of 60-120ml at GRV checks. HOB 45 as much as possible. This regimen provides 1815kcal and 75g protein. Fluid needs are being met, continuing to monitor fluids and Propofol to adjust rate. Electrolytes WNL. No BM 2 days. Weight has remained stable. Some mild hyperglycemia (expected with COVID)- 153, 144, 159, 201. TF stopped and restarted to confirm placement yesterday, placement confirmed and TF were restarted and brought to goal rate at 05:00. 60% of energy needs met yesterday, 09/27. Continuing to monitor.
[2020-09-27 08:31] LABS: MRSA DNA PCR NEGATIVE
--- NOTE | 2020-09-27 10:09 | HMH.PULMPN ---
Internal Medicine - PN: Subj *Date: 09/27/20 *Time: 10:09 Interval history: No acute respiratory events overnight. Patient respiratory status remained stable. Patient over the weekend remained stable but critical on high vent settings, pressor requirements improved now on 2.5 mcg of Levophed. Pneumothorax that resolved after right-sided chest tube placement Exam - Constitutional Comment:: Patient appears comfortable, intubated and sedated - Neck Exam Neck:: normal visual inspection, thyroid normal, no lymphadenopathy - Respiratory Exam Comments: Bilateral coarse breath sounds. - Cardiovascular Exam Cardiac:: S1, S2 - GI Exam GI:: soft, no hepatosplenomegaly - Skin Exam Skin: warm, no rash - Neurological Exam Intubated and sedated - Extremities Exam Extremities: no cyanosis, no clubbing, no edema Assessment and Plan (1) Pneumonia due to COVID-19 virus Status: Acute Category: Medical Code(s): U07.1 - COVID-19; J12.89 - Other viral pneumonia (2) Acute hypoxemic respiratory failure due to COVID-19 Status: Acute Category: Medical Code(s): U07.1 - COVID-19; J96.01 - Acute respiratory failure with hypoxia (3) Hypertension Status: Chronic Category: Medical Code(s): I10 - Essential (primary) hypertension (4) Elevated liver function tests Status: Acute Category: Medical Code(s): R79.89 - Other specified abnormal findings of blood chemistry (5) Hypokalemia Status: Acute Category: Medical Code(s): E87.6 - Hypokalemia (6) PAF (paroxysmal atrial fibrillation) Status: Acute Category: Medical Code(s): I48.0 - Paroxysmal atrial fibrillation (7) Hyperlipidemia Status: Acute Category: Medical Code(s): E78.5 - Hyperlipidemia, unspecified - Assessment and plan all Dx Assessment and Plan for all problems:: #Acute hypoxic respiratory failure: #COVID-19 pneumonia: 74-year-old no significant smoking history last month 50 years ago no prior respiratory complaints presented with worsening shortness of breath and found to be positive for COVID-19 pneumonia. CTA from last week did not show any evidence of PE. Patient respiratory status eventually worsened needing intubation and mechanical ventilation on 09/25/2020. Patient stated receiving high ventilatory settings, with a PEEP of 10 initially escalated to 12, FiO2 100% with a tidal volume of 440. Interval update: Patient respiratory status remained stable with improvement in his blood gas oxygenation. Patient also had a right-sided pneumothorax status post chest tube placement with resolution of pneumothorax, imaging this morning did not show any residual pneumothorax. No leak or bubbling noted. Patient this morning on 12 of PEEP 100% FiO2 with a tidal volume of 440 and rate of 24, FiO2 decreased to 80% with saturations maintaining 92% and above. This morning showed improved oxygenation. Hemodynamically stable on 2.5 MCG of Levophed. Renal function stable. Leukocytosis stable. Sputum culture from 09/27 growing Stenotrophomonas maltophilia, BAL aspirate and blood cultures pending, no growth so far ET tube 10 cm above the mazin status post advancement, still 6 centimeters above the mazin, talk to the team to advance it by 2 to 3 cm Ventilator also having high FiO2 alarm despite changing the airline from the wall, likely issues with the vent, vent changed. ABG reviewed showed mixed respiratory and metabolic acidosis. Oxygenation improved. Plan: -Continue current lung protective mechanical ventilatory support with PEEP of 12, tidal volume of 440, FiO2 of 80% -Discontinue vancomycin and continue meropenem and levofloxacin (nasal MRSA PCR negative) -Sedation and pain control with propofol and fentanyl with a RASS goal of negative 1 to 0 and CPOT goal of less than or equal to 2 ? Continue dexamethasone and remdesivir for COVID-19 pneumonia for a total of 10 days - Continue DuoNebs every 4 hours scheduled and budesonide every 12
--- NOTE | 2020-09-27 12:19 | PC.NURSE ---
0930 - FIO2 weaned to 80% @ this time per Dr. Chacon, pt tolerating well sat maintaining mid 90's.
--- NOTE | 2020-09-27 12:40 | XR_ITS ---
PROCEDURE: XR CHEST PORTABLE CLINICAL HISTORY: Confirm ETT placement after advancement Respiratory failure, pneumothorax COMPARISON: CT CT ANGIO CHEST from 09/21/2020 CR XR CHEST PORTABLE from 09/26/2020 CR XR CHEST PORTABLE from 09/27/2020 CR XR CHEST PORTABLE from 09/27/2020 FINDINGS: There remains bilateral lower lobe pneumonia superimposed upon chronic change. Right-sided chest tube remains in place. No evidence of pneumothorax. Right subclavian central venous line nasogastric tube and endotracheal tube are noted. The endotracheal tube tip is in good position 6 cm above the mazin at the T4-T5 level. No acute bony abnormalities. IMPRESSION: Endotracheal tube tip is in good position. Other tubes and lines are also in good position. No change bilateral pneumonia. No evidence of pneumothorax Dictated by: Shahram Aguilra MD 09/27/2020 13:18 Shahram Aguilar MD in [facility] 09/27/2020 13:18
--- NOTE | 2020-09-27 14:40 | PC.NURSE ---
FIO2 decreased to 70% per Dr. Chacon, RT at bedside.
--- NOTE | 2020-09-27 16:53 | PC.NURSE ---
ET TUBE @ 27 @ the lip per Dr bhat
--- NOTE | 2020-09-27 16:59 | PC.NURSE ---
Addendum entered by Felipa Ignacio RN 09/27/20 19:25: Son update twice this shift on POC. Original Note: No acute changes this shift. Remains on Assist Control (Rate-24, Peep - 12, FIO2 - 70%, TV - 440). Lungs diminished in bilat bases. Has been suctioned Q2H along w/ oral care. Sputum thick and blood streaked. #7.5 ETT has been advanced to 27 @ lip w/ placement confirmation w/ CXR, ETT is on (R) side and was moved this shift by RT. Lungs diminished in bilat lower lobes. Chest tube has had 40 cc of serosang drainage out this shift. Hr regular, sinus tammie on tely. Abdomen soft w/ active BS in all quads. OG 55 cm @ lip, pulmocare feeds @ 55 mls/hr per dietitian Residuals checked Q6H and have continued to be 0. No BM this shift. Vasquez cath to drain at bedside w/ clear yellow urine noted.Vasquez care performed by staff. UOP adequate. Skin intact. Pt turned and repositioned Q2H. Heels floating. HOB >30 degrees. Fentanyl gtt @ 15 mls/hr Propofol @ 25.2 mls/hr Levo @ 4 mls/hr Bed safety in place. Call david w/in reach.
--- NOTE | 2020-09-27 20:00 | PC.NURSE ---
Addendum entered by Agnes Cleary RN 09/27/20 21:24: levophed at 2.5 mcq Original Note: initial assessment patient moving more air in bilateral upper lobes than previous night but is still diminished throughout. patient on 40% fio2 with o2 sat smid 90s. patient breathing from 26-32 bpm, peak airway pressures 40-50s, pulling volumes high 300 to low 400s. patient slightly wakes with patient care and suctioning. fentanyl increased back to 125mcq. tube running in ogt at 55ml/hr which is goal. auscultated for placement. luna draining clear yellow urine. accounts officer shows sb. levophed at 2 mcq, propofol at 55 mcq
--- NOTE | 2020-09-27 20:57 | PC.NURSE ---
peak airway pressures improving, now maintaining high 30s to mid 40s, rr remains 29-30, tv also improving to mid 400. patient continues to grimace with patient care and wakes with turning. fentanyl increased back to 150 mcq.
--- NOTE | 2020-09-27 21:23 | PC.NURSE ---
map less than 65 last two cycled blood pressures. levophed increased to 3 mcq
[2020-09-28] VITALS (65 sets, daily range): BP systolic 88–173; BP diastolic 39–76; PULSE 45–169; RESP 13–30; TEMP 36.6–37.4; O2SAT 79–95; BMI 25.0
--- NOTE | 2020-09-28 00:10 | PC.NURSE ---
peak airway pressures maintaining in the mid to high 30s, rr 25-26, tv mid 400s to 500s after sedation increased.
--- NOTE | 2020-09-28 05:48 | PC.NURSE ---
shift summary patient moving more air this am, diminished throughout all field, course crackles auscultated bilateral upper lobes. sats have gradually decreased throughout the night, maintaining sats greater than 92% with a few brief periods of desating to 89% this am. fio2 remains on 70% fio2 with peep of 12. tv has remained 450-550, peak airway pressure have maintained below 40 with respiratory rate less than 30 since sedation increased except for brief fluctuation during patient care. patient has weak cough when turning, oral care and hygiene. cardiac monitor technician has shown sb 45-52 with rare pvcs. ogt at 55 at the lip, pulmocare running at 55ml/hr, with zero residuals. luna catheter draining clear, yellow urine. levophed infusing at 3mcq, propofol infusing at 55mcq and fentanyl infusing at 150 mcq. right chest tube to water sealo, draining ss drainage.
[2020-09-28 06:11] LABS: Lactic Acid 2.1 mmol/L (0.7-2.1)
[2020-09-28 07:09] LABS: ABG Base Excess 2.2 mmol/L (-2.4-2.3); ABG HCO3 27.2 mmhg (22.0-26.0); ABG Oxygen Saturation 92 % (90-100); ABG PCO2 46.3 mmhg (35.0-45.0); ABG PH 7.39 mmol/L (7.35-7.45); ABG PO2 60.7 mmhg (80-100); ABG TCO2 28.6 mmhg (23-27)
[2020-09-28 07:13] LABS: Allen's Test ACCEPTABLE; Oxygen 70% %; PEEP 12; Source R RADIAL; Tidal Volume 440; Vent Rate 24
--- NOTE | 2020-09-28 08:37 | P.PN_ITS ---
Subjective Narrative: The patient remains intubated. Progress Note: A&P (1) Pneumonia due to COVID-19 virus Status: Acute (2) Acute hypoxemic respiratory failure due to COVID-19 Status: Acute (3) Hypertension Status: Chronic (4) Elevated liver function tests Status: Acute (5) Hypokalemia Status: Acute (6) PAF (paroxysmal atrial fibrillation) Status: Acute (7) Hyperlipidemia Status: Acute (8) Pneumothorax Status: Acute Assessment and plan: Likely maintain chest tube in position (to waterseal) until patient extubated Exam Vital signs and Labs for Last 24 Hours: Temp Pulse Resp BP Pulse Ox 97.9 F 53 L 30 H 115/43 L 92 L 09/28/20 07:59 09/28/20 08:00 09/28/20 07:59 09/28/20 07:59 09/28/20 07:59 Laboratory Results - last 24 hr 09/28/20 04:45: Lactate 2.1 09/28/20 07:06: Specimen Source R radial, O2 % 70%, ABG pH 7.39, ABG pCO2 46.3 H , ABG pO2 60.7 L, ABG HCO3 27.2 H, ABG Total CO2 28.6 H, ABG O2 Saturation 92, ABG Base Excess 2.2, Shahram Test Acceptable, Vent Rate 24, Tidal Volume 440, PEEP 12 I & O for Last 24 hours: Intake & Output 09/25/20 09/26/20 09/27/20 09/28/20 11:59 11:59 11:59 11:59 Intake Total 1652 / 1772 3318.016 / 3318.016 3830.659 / 3929.659 2717.022 / 2717.022 Output Total 1160 / 1210 1395 / 1545 1468 / 1508 1220 / 1220 Balance 492 / 562 1923.016 / 1461.681 8347.659 / 2421.659 1497.022 / 1497.022 Weight 167 lb 5 oz 167 lb 167 lb 8.821 oz 169 lb 1.6 oz Microbiology Reports for the Last 24 Hours: Microbiology 09/25/20 09:30 Blood - Central Blood Culture - Preliminary NO GROWTH AFTER 48 HOURS 09/25/20 09:30 Blood Blood Culture - Preliminary NO GROWTH AFTER 48 HOURS 09/24/20 22:30 Anus CRE Surveillance Culture - Final Negative - Constitutional Comments: Intubated/sedated
--- NOTE | 2020-09-28 08:53 | PC.NURSE ---
BP 121/46. Decreased Levophed gtt to 2mcg/min from 3mcg/min.
--- NOTE | 2020-09-28 09:12 | PC.NURSE ---
Dr. Chacon @ BS. He increased TV to 480. All other vent settings are the same. He ordered to decrease Fentanyl gtt to 100mcg/hr and to use prn Fentanyl if peak pressures increase. Do not increase Fentanyl gtt unless you have given 2 prn Fentanyl doses and he is aware. He also ordered Lasix 60mg IV NOW. Order faxed to pharmacy.
[2020-09-28 09:28] LABS: Reflex Lactic Add Lactic Reflex
--- NOTE | 2020-09-28 09:48 | XR_ITS ---
PROCEDURE: XR CHEST PORTABLE CLINICAL HISTORY: low o2 Low O2 saturation COMPARISON: CT CT ANGIO CHEST from 09/21/2020 CR XR CHEST PORTABLE from 09/27/2020 CR XR CHEST PORTABLE from 09/27/2020 CR XR CHEST PORTABLE from 09/27/2020 FINDINGS: 9:59 a.m.. Endotracheal tube nasogastric tube right subclavian central venous line and right-sided chest tube are all in good position. Bilateral lower lobe pneumonia once again noted with superimposed emphysema. Subcutaneous gas is noted in the right lower chest laterally with question of a minimal right-sided pneumothorax adjacent to the chest tube. This could even be related overlying soft tissue gas. IMPRESSION: No change tubes and lines. Increasing right sided subcutaneous emphysema with possible tiny pneumothorax with persistent bilateral lower lobe pneumonia Dictated by: Shahram Aguilar MD 09/28/2020 10:27 Shahram Aguilar MD in [facility] 09/28/2020 10:27
--- NOTE | 2020-09-28 10:26 | PC.NURSE ---
verbal order received from Dr Chacon for pt/ptt, Lactiv acid, CBC CMP, Mag, Phos.
--- NOTE | 2020-09-28 10:34 | HMH.PULMPN ---
Internal Medicine - PN: Subj *Date: 09/28/20 *Time: 11:54 Interval history: No acute respiratory events overnight, patient ventilator settings remained stable throughout and except this morning patient noted to have acute decompensating saturation in the low 80s along with recurrence of A. fib with RVR. Exam - Constitutional Constitutional:: comfortable - HENMT Exam HENMT: normocephalic, atraumatic - Eye Exam Eyes:: eyelids normal, normal conjunctiva - Neck Exam Neck:: normal visual inspection, thyroid normal, no lymphadenopathy - Respiratory Exam Comments: Intubated and sedated. ET tube 25 cm at the lip. Bilateral coarse breath sounds. Chest tube tidaling. - Cardiovascular Exam Cardiac:: S1, S2 - GI Exam GI:: soft, no hepatosplenomegaly - Neurological Exam Intubated and sedated. Appears comfortable. - Extremities Exam Extremities: no cyanosis, no clubbing, edema Assessment and Plan (1) Pneumonia due to COVID-19 virus Status: Acute Category: Medical Code(s): U07.1 - COVID-19; J12.89 - Other viral pneumonia (2) Acute hypoxemic respiratory failure due to COVID-19 Status: Acute Category: Medical Code(s): U07.1 - COVID-19; J96.01 - Acute respiratory failure with hypoxia (3) Hypertension Status: Chronic Category: Medical Code(s): I10 - Essential (primary) hypertension (4) Elevated liver function tests Status: Acute Category: Medical Code(s): R79.89 - Other specified abnormal findings of blood chemistry (5) Hypokalemia Status: Acute Category: Medical Code(s): E87.6 - Hypokalemia (6) PAF (paroxysmal atrial fibrillation) Status: Acute Category: Medical Code(s): I48.0 - Paroxysmal atrial fibrillation (7) Hyperlipidemia Status: Acute Category: Medical Code(s): E78.5 - Hyperlipidemia, unspecified (8) Pneumothorax Status: Acute Category: Medical Code(s): J93.9 - Pneumothorax, unspecified - Assessment and plan all Dx Assessment and Plan for all problems:: #Acute hypoxic respiratory failure: #COVID-19 pneumonia: 74-year-old no significant smoking history last month 50 years ago no prior respiratory complaints presented with worsening shortness of breath and found to be positive for COVID-19 pneumonia. CTA from last week did not show any evidence of PE. Patient respiratory status eventually worsened needing intubation and mechanical ventilation on 09/25/2020. Patient stated receiving high ventilatory settings, with a PEEP of 10 initially escalated to 12, FiO2 100% with a tidal volume of 440, antibiotics broadened to vancomycin and cefepime levofloxacin eventually vancomycin was discontinued given his nasal MRSA PCR was negative and his sputum cultures growing stenotrophomonas. Patient also experienced a right-sided pneumothorax during his heart hospital course, status post chest tube placement by surgery with complete resolution of his pneumothorax Interval update: Patient respiratory status remained stable overnight on 80% FiO2 12 of PEEP for 40 of tidal volume and 24 of rate. However this morning patient acutely decompensated desatted to 70% required bagging for a prolonged duration and giving paralysis to improve his saturations. Chest x-ray after that showed slight worsening of his pulmonary infiltrates, pneumothorax remained stable. His acute decompensation along with recurrence of A. fib and persistent hypoxia, I am concerned that this patient might have a PE, his last CTA one week ago did not show any evidence of PE. So we started the patient heparin drip and will get a lower extremity Doppler and continue antibiotics with meropenem and levofloxacin. Patient also went into A. fib RVR this morning, status post 10 mg of Lopressor with control of his heart rate. Plan: -Lower extremity Doppler to evaluate for DVT and start heparin drip -Continue current lung protective mechanical ventilatory support with PEEP of 14, tidal volume of 480, FiO2 of 100% -Continu
--- NOTE | 2020-09-28 10:51 | ECG_ITS ---
APPROVED REPORT Exam: Resting ECG HR:68 bpm ECG Measurements Heart Rate 68 AXES MT 144 P 57 QRSd 92 QRS 91 QT 402 T 19 QTc 427 Conclusion Normal sinus rhythm Rightward axis Low voltage QRS Nonspecific ST abnormality Abnormal ECG Electronically signed by : Yovani Isbell, 09/28/2020 17:26:31
[2020-09-28 10:59] LABS: Lactic Acid Follow Up (RFLX 1) 1.5 mmol/L (0.7-2.1)
--- NOTE | 2020-09-28 11:05 | HMH.ACPN2 ---
Internal Medicine - PN: Subj *Date: 09/28/20 *Time: 11:05 Interval history: Attempt to wean his fentanyl this morning but shortly thereafter, his sats dropped to the 70s when he flipped into A. fib with RVR. Fentanyl drip increased again. But settings are back to FiO2 100%, tidal volume of 480 and PEEP of 14. He was off the Levophed for short time but is now back on [address] Chacon has started heparin drip out of concern for possible PE. Venous Dopplers are pending. He continues on meropenem and Levaquin. Exam Vital signs and Labs for Last 24 Hours: Temp Pulse Resp BP Pulse Ox 98.5 F 56 L 29 H 104/45 L 91 L 09/28/20 13:00 09/28/20 13:00 09/28/20 13:00 09/28/20 13:00 09/28/20 13:00 Laboratory Results - last 24 hr 09/28/20 04:45: Lactate 2.1 09/28/20 07:06: Specimen Source R radial, O2 % 70%, ABG pH 7.39, ABG pCO2 46.3 H, ABG pO2 60.7 L, ABG HCO3 27.2 H, ABG Total CO2 28.6 H, ABG O2 Saturation 92, ABG Base Excess 2.2, Shahram Test Acceptable, Vent Rate 24, Tidal Volume 440, PEEP 12 09/28/20 10:25: Lactate 1.5 09/28/20 10:25: WBC 11.2 H, RBC 4.54 L, Hgb 13.7 L, Hct 42.1, MCV 92.7, MCH 30.2, MCHC 32.6, RDW 14.2, Plt Count 201, MPV 8.7, Neut % (Auto) 92.7 H, Lymph % (Auto) 2.9 L, [place] % (Auto) 2.4, Eos % (Auto) 1.4, Baso % (Auto) 0.6, Neut # (Auto) 10.4 H, Lymph # (Auto) 0.3 L, [place] # (Auto) 0.3, Eos # (Auto) 0.2, Baso # (Auto) 0.1, Total Counted 100, Neutrophils % (Manual) 85 H, Lymphocytes % (Manual) 8 L, Monocytes % (Manual) 7, Platelet Estimate Normal, RBC Morphology Normal 09/28/20 10:25: PT 11.0, INR 0.99, APTT 27.2 09/28/20 10:25: Sodium 140, Potassium 4.1, Chloride 104, Carbon Dioxide 33 H, Anion Gap 7.1, BUN 34 H D, Creatinine 0.60 L, Estimated Creat Clear 69, Estimated GFR 131, Est GFR ( Amer) 159, Glucose 172 H, Calcium 8.2 L, Phosphorus 3.1, Magnesium 2.6 H, Total Bilirubin 0.5, AST 79 H, ALT 50, Alkaline Phosphatase 160 H, Total Protein 6.2 L, Albumin 2.8 L, Globulin 3.4 H, Albumin/Globulin Ratio 0.8 L I & O for Last 24 hours: Intake & Output 09/26/20 09/27/20 09/28/20 09/29/20 11:59 11:59 11:59 11:59 Intake Total 3318.016 / 3318.016 3830.659 / 3929.659 2733.314 / 2733.314 Output Total 1395 / 1545 1468 / 1508 2340 / 2490 400 / 400 Balance 1923.016 / 2978.594 6130.659 / 2421.659 393.314 / 243.314 -400 / -400 Weight 167 lb 167 lb 8.821 oz 169 lb 1.6 oz 169 lb 1.513 oz Microbiology Reports for the Last 24 Hours: Microbiology 09/23/20 21:00 Sputum - Expectorated Sputum Gram Stain - Final 09/23/20 21:00 Sputum - Expectorated Sputum Sputum Culture - Final Stenotrophomonas maltophilia 09/25/20 09:30 Blood - Central Blood Culture - Preliminary NO GROWTH AFTER 48 HOURS 09/25/20 09:30 Blood Blood Culture - Preliminary NO GROWTH AFTER 48 HOURS 09/24/20 22:30 Anus CRE Surveillance Culture - Final Negative Narrative: Sedated. Color is good. Breath sounds are more diminished today. Heart is regular. Abdomen soft and nondistended. Lower extremities show no edema. Right foot and ankle is cool to touch. Assessment and Plan (1) Pneumonia due to COVID-19 virus Status: Acute Category: Medical Code(s): U07.1 - COVID-19; J12.89 - Other viral pneumonia (2) Acute hypoxemic respiratory failure due to COVID-19 Status: Acute Category: Medical Code(s): U07.1 - COVID-19; J96.01 - Acute respiratory failure with hypoxia (3) Hypertension Status: Chronic Category: Medical Code(s): I10 - Essential (primary) hypertension (4) Elevated liver function tests Status: Acute Category: Medical Code(s): R79.89 - Other specified abnormal findings of blood chemistry (5) Hypokalemia Status: Acute Category: Medical Code(s): E87.6 - Hypokalemia (6) PAF (paroxysmal atrial fibrillation) Status: Acute Category: Medical Code(s): I48.0 - Paroxysmal atrial f
[2020-09-28 11:06] LABS: Basophils # 0.1 K/mm3 (0-0.2); Basophils % 0.6 % (0.1-2.0); Eosinophils # 0.2 K/mm3 (0.0-0.4); Eosinophils % 1.4 % (0.1-12.0); Hematocrit 42.1 % (42.0-52.0); Hemoglobin 13.7 g/dL (14.1-18.0); Lymphocytes # 0.3 K/mm3 (0.7-4.5); Lymphocytes % 2.9 % (10-50); Mean Corpuscular HGB Conc 32.6 g/dL (31.8-35.4); Mean Corpuscular Hemoglobin 30.2 pg (27.0-31.2); Mean Corpuscular Volume 92.7 fl (80-94); Mean Platelet Volume 8.7 fl (7.4-10.4); Monocytes # 0.3 K/mm3 (0.1-1.0); Monocytes % 2.4 % (1.7-9.3); Neutrophils # 10.4 K/mm3 (1.8-7.8); Neutrophils % 92.7 % (37.0-80.0); Platelet Count 201 K/mm3 (142-424); Red Blood Count 4.54 M/mm3 (4.60-6.20); Red Cell Distribution Width 14.2 % (11.5-17.5); White Blood Count 11.2 K/mm3 (4.8-10.8)
[2020-09-28 11:08] LABS: Chloride 104 mmol/L (98-107); Potassium 4.1 mmoL/L (3.5-5.1); Sodium 140 mmol/L (136-145)
[2020-09-28 11:10] LABS: Blood Urea Nitrogen 34 mg/dl (9-20); Creatinine Clearance Estimated 69 mL/min (50-200); Estimated Glomerular Filt Rate 131 ml/min (>60); GFR (African American) 159 ML/MIN (>60)
[2020-09-28 11:11] LABS: Alanine Aminotransferase 50 U/L (12-78); Albumin Level 2.8 g/dl (3.5-5.0); Albumin/Globulin Ratio 0.8 (1.1-1.8); Alkaline Phosphatase 160 U/L (38-126); Anion Gap 7.1 mEq/L (5-15); Aspartate Amino Transferase 79 U/L (17-59); Bilirubin,Total 0.5 mg/dl (0.2-1.3); Calcium 8.2 mg/dl (8.4-10.2); Carbon Dioxide 33 mmol/L (22.0-30.0); Globulin 3.4 g/dL (1.3-3.2); Glucose 172 mg/dl (74-100); Magnesium 2.6 mg/dl (1.6-2.3); Phosphorous 3.1 mg/dl (2.5-4.5); Total Protein,Serum 6.2 g/dl (6.3-8.2)
[2020-09-28 11:21] LABS: Activated Partial Thrombo Time 27.2 seconds (23.6-34.0); INR 0.99 (0.9-1.1)
[2020-09-28 11:26] LABS: MANUAL DIFFERENTIAL MANUAL DIFFERENTIAL (MANUAL DIFF)
--- NOTE | 2020-09-28 12:14 | PC.NURSE ---
0920: pt with eyes open, arms flailing, bucking the vent, peak pressures in the high 40s. Fentanyl 12.5mcg prn dose given. 0930: pt has not calmed down. 2nd dose of Fentanyl 12.5mcg prn given. 0935: Levophed gtt turned OFF. BP 148/53 0940: called Dr. Chacon secondary to Fentanyl doses not helping pt. His eyes are open, arms are moving, peak pressures remain in the 40s and he is not desating to the 70s. RT @ BS and is now baggingg the pt. 0945: Dr. Chacon @ BS 0950: Dr. Chacon ordered Rocuronium 50mg. Called pharmacist (Carlotta Connelly) who brought med over. Dr. Chacon pushed med. 0955: HR 169. Dr. Chacon ordered Metoprolol 10mg IV now. Med given. 1000: STAT labs ordered and entered by Haylee Vidal RN 1015: Heparin gtt started @ 26mL/hr (1300units/hr). 1039: pt converted to NSR HR 73. 1040: HR bounced back to 148 1050: HR now in the 70s and sustaining. 1150: BP 97/41. Levophed gtt restarted @ 2mcg/min. 1200: BP 107/43. Dr. Chacon updated. Dr. Hein updated. Dr. Hein called to have pt transferred for higher level of care. Pt is now on a waiting list for an ICU COVID bed @ . See vital sign charting for this mornings trend of vitals.
[2020-09-28 12:33] LABS: Lymphocytes % 8 % (10-50); Monocytes % 7 % (2-9); Neutrophils % 85 % (42-76); Platelet Estimate Normal; RBC Morphology Normal; Total Cells Counted 100
--- NOTE | 2020-09-28 12:37 | P.CONPHA_ITS ---
[facility] Pharmacy Heparin Dosing - Demographic Data Admission date:: 09/20/20 Date: 09/28/20 Time: 12:38 Allergies/Adverse Reactions: Allergies Allergy/AdvReac Type Severity Reaction Status Date / Time No Known Allergies Allergy Verified 09/20/20 10:35 Height: 1.75 m Weight: 76.7 kg - Indication Medication therapy:: Heparin Patient Problems: Current Active Problems Pneumonia due to COVID-19 virus (Acute) Acute hypoxemic respiratory failure due to COVID-19 (Acute) Hypertension (Chronic) Elevated liver function tests (Acute) Hypokalemia (Acute) PAF (paroxysmal atrial fibrillation) (Acute) Hyperlipidemia (Acute) Pneumothorax (Acute) CVA?: No Bleeding problem?: No Kidney disease?: No OR?: No Desired PTT range:: 60-80 seconds - Labs Anticoagulation Lab Results:: 09/28/20 10:25 Hgb 13.7 L Hct 42.1 Plt Count 201 - Monitoring Dose Monitor 1 Date: 09/28/20 Time: 10:25 PTT Result:: 27.2 Infusion Rate:: 26 ML/HR = 1300 UNITS/HR Comment:: BASELINE PTT BVD=[id number] Dose Monitor 2 Date: 09/28/20 Time: 16:30 PTT Result:: 51.5 Infusion Rate:: 28 ML/HR - Core Measures Is INR > or = 2 at discharge?: No Most Recent Labs:: Laboratory Results - last 24 hr 09/28/20 04:45: Lactate 2.1 09/28/20 07:06: Specimen Source R radial, O2 % 70%, ABG pH 7.39, ABG pCO2 46.3 H , ABG pO2 60.7 L, ABG HCO3 27.2 H, ABG Total CO2 28.6 H, ABG O2 Saturation 92, ABG Base Excess 2.2, Shahram Test Acceptable, Vent Rate 24, Tidal Volume 440, PEEP 12 09/28/20 10:25: Lactate 1.5 09/28/20 10:25: WBC 11.2 H, RBC 4.54 L, Hgb 13.7 L, Hct 42.1, MCV 92.7, MCH 30.2, MCHC 32.6, RDW 14.2, Plt Count 201, MPV 8.7, Neut % (Auto) 92.7 H, Lymph % (Auto) 2.9 L, [place] % (Auto) 2.4, Eos % (Auto) 1.4, Baso % (Auto) 0.6, Neut # (Auto) 10.4 H, Lymph # (Auto) 0.3 L, [place] # (Auto) 0.3, Eos # (Auto) 0.2, Baso # (Auto) 0.1, Total Counted 100, Neutrophils % (Manual) 85 H, Lymphocytes % (Manual) 8 L, Monocytes % (Manual) 7, Platelet Estimate Normal, RBC Morphology Normal 09/28/20 10:25: PT 11.0, INR 0.99, APTT 27.2 09/28/20 10:25: Sodium 140, Potassium 4.1, Chloride 104, Carbon Dioxide 33 H, Anion Gap 7.1, BUN 34 H D, Creatinine 0.60 L, Estimated Creat Clear 69, Estimated GFR 131, Est GFR ( Amer) 159, Glucose 172 H, Calcium 8.2 L, Phosphorus 3.1, Magnesium 2.6 H, Total Bilirubin 0.5, AST 79 H, ALT 50, Alkaline Phosphatase 160 H, Total Protein 6.2 L, Albumin 2.8 L, Globulin 3.4 H, Albumin/Globulin Ratio 0.8 L If INR was < than 2.0 why was therapy stopped?: PATIENT TRANSFERRED TO Were Heparin and Warfarin started on the same day?: No If not, why?: PATIENT TRANSFERRED TO
--- NOTE | 2020-09-28 12:52 | HMH.ACPN ---
Internal Medicine - PN: Subj *Date: 09/28/20 *Time: 12:52 Exam Vital signs and Labs for Last 24 Hours: Temp Pulse Resp BP Pulse Ox 99.3 F 63 14 103/39 L 88 L 09/28/20 12:00 09/28/20 12:00 09/28/20 12:00 09/28/20 12:00 09/28/20 12:00 Laboratory Results - last 24 hr 09/28/20 04:45: Lactate 2.1 09/28/20 07:06: Specimen Source R radial, O2 % 70%, ABG pH 7.39, ABG pCO2 46.3 H, ABG pO2 60.7 L, ABG HCO3 27.2 H, ABG Total CO2 28.6 H, ABG O2 Saturation 92, ABG Base Excess 2.2, Shahram Test Acceptable, Vent Rate 24, Tidal Volume 440, PEEP 12 09/28/20 10:25: Lactate 1.5 09/28/20 10:25: WBC 11.2 H, RBC 4.54 L, Hgb 13.7 L, Hct 42.1, MCV 92.7, MCH 30.2, MCHC 32.6, RDW 14.2, Plt Count 201, MPV 8.7, Neut % (Auto) 92.7 H, Lymph % (Auto) 2.9 L, [place] % (Auto) 2.4, Eos % (Auto) 1.4, Baso % (Auto) 0.6, Neut # (Auto) 10.4 H, Lymph # (Auto) 0.3 L, Edmonson # (Auto) 0.3, Eos # (Auto) 0.2, Baso # (Auto) 0.1, Total Counted 100, Neutrophils % (Manual) 85 H, Lymphocytes % (Manual) 8 L, Monocytes % (Manual) 7, Platelet Estimate Normal, RBC Morphology Normal 09/28/20 10:25: PT 11.0, INR 0.99, APTT 27.2 09/28/20 10:25: Sodium 140, Potassium 4.1, Chloride 104, Carbon Dioxide 33 H, Anion Gap 7.1, BUN 34 H D, Creatinine 0.60 L, Estimated Creat Clear 69, Estimated GFR 131, Est GFR ( Amer) 159, Glucose 172 H, Calcium 8.2 L, Phosphorus 3.1, Magnesium 2.6 H, Total Bilirubin 0.5, AST 79 H, ALT 50, Alkaline Phosphatase 160 H, Total Protein 6.2 L, Albumin 2.8 L, Globulin 3.4 H, Albumin/Globulin Ratio 0.8 L I & O for Last 24 hours: Intake & Output 09/25/20 09/26/20 09/27/20 09/28/20 23:59 23:59 23:59 23:59 Intake Total 2939.724 / 3026.724 3473.868 / 3566.868 3145.105 / 3245.105 832.292 / 832.292 Output Total 1255 / 1330 1428 / 1488 1430 / 1465 1645 / 1645 Balance 1684.724 / 5172.606 5803.868 / 2078.868 1715.105 / 1780.105 -812.708 / -812.708 Weight 75.892 kg 75.75 kg 76 kg 76.7 kg Microbiology Reports for the Last 24 Hours: Microbiology 09/23/20 21:00 Sputum - Expectorated Sputum Gram Stain - Final 09/23/20 21:00 Sputum - Expectorated Sputum Sputum Culture - Final Stenotrophomonas maltophilia 09/25/20 09:30 Blood - Central Blood Culture - Preliminary NO GROWTH AFTER 48 HOURS 09/25/20 09:30 Blood Blood Culture - Preliminary NO GROWTH AFTER 48 HOURS 09/24/20 22:30 Anus CRE Surveillance Culture - Final Negative Assessment and Plan (1) Pneumonia due to COVID-19 virus Status: Acute Category: Medical Code(s): U07.1 - COVID-19; J12.89 - Other viral pneumonia (2) Acute hypoxemic respiratory failure due to COVID-19 Status: Acute Category: Medical Code(s): U07.1 - COVID-19; J96.01 - Acute respiratory failure with hypoxia (3) Hypertension Status: Chronic Category: Medical Code(s): I10 - Essential (primary) hypertension (4) Elevated liver function tests Status: Acute Category: Medical Code(s): R79.89 - Other specified abnormal findings of blood chemistry (5) Hypokalemia Status: Acute Category: Medical Code(s): E87.6 - Hypokalemia (6) PAF (paroxysmal atrial fibrillation) Status: Acute Category: Medical Code(s): I48.0 - Paroxysmal atrial fibrillation (7) Hyperlipidemia Status: Acute Category: Medical Code(s): E78.5 - Hyperlipidemia, unspecified (8) Pneumothorax Status: Acute Category: Medical Code(s): J93.9 - Pneumothorax, unspecified The patient's infection will respond to the chosen ABx?: Yes Is the patient receiving the right drug, dose, and route?: Yes Could a more targeted ABx be ordered?: No
--- NOTE | 2020-09-28 13:32 | PC.NURSE ---
BP 88/48. Levophed gtt increased to 5mcg/min. HR 54.
[2020-09-28 13:35] LABS: ABG HCO3 27.7 mmhg (22.0-26.0); ABG PCO2 56.4 mmhg (35.0-45.0); ABG PH 7.31 mmol/L (7.35-7.45); ABG PO2 52.8 mmhg (80-100)
[2020-09-28 13:41] LABS: ABG Oxygen Saturation 85 % (90-100); ABG TCO2 29.4 mmhg (23-27); Allen's Test ACCEPTABLE; Oxygen 100 %; PEEP 12; Source R RADIAL; Tidal Volume 440; Vent Rate 24
--- NOTE | 2020-09-28 13:41 | PC.NURSE ---
BP 111/50. Levophed gtt continues @ 5mcg/min. HR 52 with occasional PVCs.
--- NOTE | 2020-09-28 13:49 | PC.NURSE ---
Dr. Chacon @ [facility]. He ordered to discontinue Lovenox. Order faxed to pharmacy on his behalf.
--- NOTE | 2020-09-28 14:28 | PC.NURSE ---
BP 128/76. Levophed gtt decreased to 4mcg/min. HR 55.
--- NOTE | 2020-09-28 14:42 | PC.NURSE ---
BP 109/39. Will continue Levophed @ 4mcg/min.
--- NOTE | 2020-09-28 15:24 | PC.NURSE ---
No beds available at this time
--- NOTE | 2020-09-28 16:56 | PC.NURSE ---
called and reports that they have a bed available. They will call back when the current pt has been discharged. Paged Dr. Potts, who is oncall for Dr. Hein.
--- NOTE | 2020-09-28 17:10 | HMH.DCSUM ---
General - General Admission date:: 09/20/20 Discharge date: 09/28/20 HPI HPI: - Mr. Gillette is a 74-year-old male patient with a history of hyperlipidemia, hypertension, and hypothyroidism who presented to [facility] emergency room with progressive shortness of breath and cough. He states he has been sick for about 6 or 7 days and thought he could manage to get well on his own. It started after playing golf with his friends who are now all sick with Covid. There are about 10 of them that have fallen ill. He has been more short of breath the last 2 to 3 days. His O2 sats did decrease and he felt so badly his son insisted that he come to the emergency room. He denies chest pain. He states he also developed a diarrhea about 2 to 3 days ago and has not been able to eat or drink. He denies nausea and vomiting and abdominal pain but states he has just no appetite. He reports generalized fatigue. He was initially seen in the [facility] and was found to have O2 sats in the 70s. He appears cyanotic. Thus he was transferred to the ER where he was evaluated. Work-up in the emergency room revealed normal white blood cell count at 7900. Blood chemistries showed a low potassium at 3.1. BUN was a little elevated at 29 with a creatinine of 0.9. GFR is 82. Liver function studies showed an elevated AST at 67 and alkaline phosphatase of 147. BNP was 465. Covid PCR was detected with a positive IgG and positive IgM.. Chest x-ray revealed bilateral lower lobe pneumonia. O2 sats did improve to 88 with 6 liters of oxygen. Hospital Course Hospital Course: He was admitted to the Covid unit initially on nasal oxygen and was started on remdesivir and dexamethasone per protocol. Dr. Chacon was consulted for pulmonology recommendations. Over the next few days his oxygen demands steadily increased to the point he first required high flow oxygen and then required BiPAP. By 09/24/2020 he was having difficulty maintaining adequate O2 sats on maximum BiPAP pressures even though subjectively he was not dyspneic. After discussion with the patient he was agreeable to intubation. He was intubated on the afternoon of 09/24/2020 placed on FiO2 of 100%, tidal volume of 440, and PEEP of 5. He was sedated with propofol and fentanyl to maintain a RASS score between 0 and -1. He did require deep line insertion for IV access. This was complicated by a pneumothorax requiring a subsequent right side chest tube. His pneumothorax has reexpanded with chest tube now to waterseal. Over the next 2 days, he was fighting the ventilator and required increased sedation with RASS score of around -3. He developed some intermittent atrial fibrillation with RVR requiring intermittent doses of metoprolol. He then dropped his blood pressure and required Levophed drip which has been titrated to maintain his systolic blood pressure greater than 100. He was initially started on IV Rocephin and Zithromax to cover for potential secondary bacterial infections. As his condition has worsened his antibiotic regimen has been escalated to vancomycin, meropenem and Levaquin. On 09/27/2020, he was weaned to an FiO2 of 70%. He seemed to tolerate this well and on 09/28/2020 attempt was made to wean his fentanyl from 150 mcg to 100 mcg. Almost immediately his sats dropped to the 70s, he flipped into atrial fibrillation with an RVR and his blood pressure dropped. Fentanyl was again increased and vent settings were adjusted to FiO2 of 100%, tidal volume of 480 and now on a PEEP of 14. He was also started on a heparin drip with concern for possible PE. At this point, after discussion with Dr. Chacon, it is felt that he would benefit from transfer to a higher level of care where additional modalities of treatment may be available. To that end, I contacted , ICU transport aide, at and he is agreeable to accept the patient in transfer. Objective Vital signs: Temp Puls
--- NOTE | 2020-09-28 17:15 | PC.NURSE ---
Dr. Potts called back and will enter discharge summary and agrees that pt needs to travel to [place] by air.
[2020-09-28 17:41] LABS: Activated Partial Thrombo Time 51.5 seconds (23.6-34.0)
--- NOTE | 2020-09-28 17:44 | PC.NURSE ---
Santo from [facility] pharmacy called and orders to increase Heparin gtt to 1400 units/hr based on his PTT of 51. Next PTT is due @ 2300. Order read back and verified.
--- NOTE | 2020-09-28 19:17 | PC.NURSE ---
0700: called report to YURI Little. 0713: called [facility]. Spoke to Alfreda. 719: notified boilerhouse mechanic (Kendra)
--- NOTE | 2020-09-28 21:05 | PC.NURSE ---
pt left with [facility] enroute to [place]
[2020-10-08 07:38] LABS: ABG Oxygen Saturation 96 % (90-100)
== END 2020-09-28 21:05 | disposition short-term general hospital (02) | DRG 207 ==
LOC: UTC 09:44 → ER 10:07 → ICU 12:13
PROVIDERS: Internal Medicine Pulmonary Disease; Nurse Practitioner Family; Physician Assistant; Admitting Provider Family Medicine; Emergency Provider Emergency Medicine; Visit Provider Family Medicine
DX: U07.1 COVID-19 (principal); J95.811 Postprocedural pneumothorax; J12.89 Other viral pneumonia; J96.01 Acute respiratory failure with hypoxia; I48.0 Paroxysmal atrial fibrillation; E03.9 Hypothyroidism, unspecified; I10 Essential (primary) hypertension; E87.6 Hypokalemia
CPT/HCPCS: 32551; 94660; 31500; 94002; 36556; 71045; 71275; 80048; 80053; 80076; 80202; 81001; 82103; 82803; 82962; 83605; 83735; 83880; 84100; 84484; 85007; 85025; 85610; 85730; 86328; 87040; 87070; 87077; 87081; 87186; 87205; 87581; 87633; 87641; 87798; 93005; 93306; 94003; 94640; 94761; 96365; 96367; 96375; 99284; C1751; J0456; J1956; J2185; J2704; J3370; Q9967